=== PATIENT | male | born 1950 | race Two or more races ===

== ENCOUNTER 2024-08-06 16:20 | Emergency (ER) | payer MEDICARE, MEDICAID, SELFPAY ==
[2024-08-06 17:06] VITALS: BP 136/81; PULSE 69; RESP 18; TEMP 36.5; O2SAT 96; BMI 32.8
--- NOTE | 2024-08-06 17:33 | XR_ITS ---
Examination: Tibia-Fibula, right , 2 views Technique: Tibia-fibula AP lateral 2 views Date and time of exam: 4 1739 hrs. Indications: Right leg filling and pain beginning 3 days ago. Findings: Bimalleolar soft tissue swelling No fracture or dislocation No cortical bone destruction Soft tissue vascular calcification Impression: No fracture or cortical bone destruction
--- NOTE | 2024-08-06 17:33 | XR_ITS ---
Examination: Duplex scan of the lower extremity, unilateral right complete Date and time of exam: August 06, 2024 1837 hrs. Indications: Right ankle and foot swelling and pain beginning 2 days ago Technique: Duplex scan of the extremity veins using B-mode/grayscale imaging and Doppler spectral analysis and color flow Attention is directed to internal echogenicity, compression and augmentation involving these veins, color flow assessment, spectral analysis Findings: Major deep venous structures in the extremity demonstrate normal course and caliber. There is no evidence of deep vein thrombosis. Normal color flow and spectral analysis Impression: Negative for DVT..
--- NOTE | 2024-08-06 17:34 | PD.EDRME ---
Rapid Medical Screening Exam RME Arrival date/time: 08/06/24 16:20 Chief Complaint: Ankle/Foot Injury Time Seen by Provider: 08/06/24 17:02 Vital signs: Vital Signs Temperature 97.7 F 08/06/24 17:06 Pulse Rate 69 08/06/24 17:06 Respiratory Rate 18 08/06/24 17:06 Blood Pressure 136/81 H 08/06/24 17:06 Pulse Oximetry (%) 96 08/06/24 17:06 Oxygen Delivery Method Room Air 08/06/24 17:06 Vital signs reviewed by provider: Yes RME Narrative: 74-year-old male presents with atraumatic right foot and ankle swelling and pain x 2 days. Patient denies known history of blood clots and is not currently on blood thinners. Denies chest pain, shortness of breath, cough, fever, chills.
[2024-08-06] MEDS: HYDROcodone/APAP 5/325 TABLET 1 TAB PO (17:46)
[2024-08-06 17:47] LABS: Basophils % (Auto) 0 % (0-2.5); Eosinophils # (Auto) 0.2 Thou/mm3 (0.0-0.5); Eosinophils % (Auto) 2 % (0-10); Hematocrit 36.7 % (41.0-53.0); Hemoglobin 12.5 g/dL (13.5-16.0); Immature Granulocytes % (Auto) 0 % (0-0); Immature Granulocytes Auto 0.03 Thou/mm3 (0.00-0.00); Lymphocytes # (Auto) 1.7 Thou/mm3 (1.0-4.8); Lymphocytes % (Auto) 19 % (10-50); Mean Corpuscular HGB Conc 34.1 g/dl (31.0-37.0); Mean Corpuscular Volume 85 fL (80-100); Monocytes # (Auto) 0.9 Thou/mm3 (0.0-0.8); Monocytes % (Auto) 9 % (0-12); Neutrophils # (Auto) 6.4 Thou/mm3 (1.8-7.7); Neutrophils % (Auto) 69 % (37-80); Nucleated Red Blood Cell % 0 /100 WBC (0); Platelet Count 167 Thou/mm3 (140-440); RDW Standard Deviation 39.1 fL (35.1-43.9); Red Blood Count 4.31 Miln/mm3 (4.50-5.90); White Blood Count 9.3 Thou/mm3 (3.8-10.6)
[2024-08-06 17:58] LABS: Sed Rate (ESR) 64 mm/hr (0-20)
--- NOTE | 2024-08-06 19:16 | EDNOTE_ITS ---
Lower Extremity Injury RME/HPI General Chief Complaint: Ankle/Foot Injury Stated Complaint: R FOOT SWELLING X 2 DAYS Time Seen by Provider: 08/06/24 17:02 Arrival date/time: 08/06/24 16:20 RME / HPI RME / HPI Narrative: 74-year-old male presents with atraumatic right foot and ankle swelling and pain x 2 days. Patient denies known history of blood clots and is not currently on blood thinners. Denies chest pain, shortness of breath, cough, fever, chills. This section includes all my notes and documentations, including HPI, PE, and ED course. Thomas Lubin MD HPI: 74-year-old male here with several days of severe right ankle pain and swelling. No obvious cause. No known injury. No redness. No fever or chills. No other complaints. ROS: Musculoskeletal: negative except as documented in HPI. Skin: negative except as documented in HPI. Neurological: negative except as documented in HPI. Physical Exam: General: Alert and oriented. No acute distress when remaining still. Eyes: Conjunctivae and lids clear. Lungs: No respiratory distress. Skin: Warm and dry. Neuro: Alert and oriented X 3. Right ankle: Remarkable for severe tenderness and edema. No calor or erythema. I reviewed all diagnostic test results. My interpretation of the x-rays is no acute fracture. My review of the US report is no DVT. Blood tests and urine tests remarkable for elevated uric acid. At this point, diagnoses include gout. Treatment here included Solu-Medrol IM and Toradol IM Significant improvement noted subjectively and objectively. Recommended conservative treatment. Based on my best medical judgment, made decision no further evaluation or treatment indicated at this time. Patient understands and agrees to the discharge instructions customized and printed, see below. Discharge instructions with Dr. Lubin: --Gout is a painful form of arthritis caused by excess uric acid. This is a waste product made by the body, forming crystals in the joints, bringing on a gout attack in severe pain. Avoid food and beverages back for gout, see attached handout. --No weight bearing (using a cane in your left hand) for 3 days for rest and healing.? Elevate above waist level for 3 days as much as possible.? ?Take Prednisone to help decrease the inflammation.?? --Take Indomethacin every 6-8 hours until you are free of pain.? And lidocaine patches and Tylenol with codeine as needed. --See a private doctor on 08/08/2024..? Ask to help with the current attack and to prevent future attacks.? ?Seek immediate medical care with worsening or fever or with any concerns.?? Thomas Lubin MD Related Data Home Medications ?Medication ?Instructions ?Recorded ?Confirmed tamsulosin 0.4 mg capsule 0.4 mg PO QHS 07/19/20 06/30/24 lisinopril 10 mg tablet 10 mg PO QDAY 06/01/22 06/30/24 pantoprazole 40 mg tablet,delayed 40 mg PO QDAY 01/15/23 06/30/24 release atorvastatin 20 mg tablet 20 mg PO HS 02/01/23 06/30/24 Previous Rx's ?Medication ?Instructions ?Recorded acetaminophen 300 mg-codeine 30 mg 2 tab PO TID PRN pain #20 tabs 08/06/24 tablet indomethacin 50 mg capsule 50 mg PO QID PRN pain #30 caps 08/06/24 lidocaine 5 % topical patch 2 patch topical QDAY PRN pain #30 08/06/24 (Lidoderm) ea prednisone 50 mg tablet 50 mg PO QDAY 3 days #3 tabs 08/06/24 Allergies Allergy/AdvReac Type Severity Reaction Status Date / Time No Known Allergies Allergy Verified 08/06/24 16:21 Course Quality Measures none Orders Category Date Time Status US venous doppler LE RT Stat Exams 08/06/24 17:33 Ordered XR tibia fibula RT 2V Stat Exams 08/06/24 17:33 Completed CBC Stat Lab 08/06/24 17:40 Completed CRP [C-Reactive Protein] Stat Lab 08/06/24 17:40 Completed ESR [Sed Rate (ESR)] Stat Lab 08/06/24 17:40 Completed Uric Acid Stat Lab 08/06/24 17:40 Completed HYDROcodone*/APAP 5/325 [[place] 5/325] Med 08/06/24 17:33 Discontinued 1 tab PO X1 ONE Ketorolac Inj [Toradol Inj] Med 08/06/24 19:09 Discontinued 60 mg IM X1 ONE MethylPREDNISolone.* [SoluMEDROL Inj] Med 08/06/24 19:09 Discontinued 125 mg IM X1 ONE Vital Signs Vital signs: Vital Signs Temperature 97.7 F 08/06/24 17:06 Pulse Rate 69 08/06/24 17:06 Respiratory Rate 18 08/06/24 17:06 Blood Pressure 136/81 H 08/06/24 17:06 Pulse Oximetry (%) 96 08/06/24 17:06 Oxygen Delivery Method Room Air 08/06/24 17:06 Extremity Injury, Lower Patient data External records reviewed:: [facility] previous records Clinical information provided by:: patient Social determinants that could affect healthcare access:: none Patient has the following chronic illnesses:: See chart How is presenting disease/condition affected by chronic disease/condition?: uneffected by Evaluation data The following diagnostics were reviewed and interpreted by me:: lab results and radiology exam(s) Lab and/or radiology exams considered but not ordered:: None Interpretation Summary: Gout Medications / Prescriptions Medications or Prescriptions considered but not ordered:: None Medication administrations:: Medication Administration History Discontinued Medications Hydrocodone Bitart/Acetaminophen (Hydrocodone/Apap 5/325 Tablet) 1 tab PO X1 ONE Stop: 08/06/24 17:34 Last Admin: 08/06/24 17:46 Dose: 1 tab Documented By: DD Ketorolac Tromethamine (Ketorolac Inj 60 Mg/2 Ml Vial) 60 mg IM X1 ONE Stop: 08/06/24 19:10 Methylprednisolone Sodium Succinate (Methylprednisolone Sod Succ 62.5 Mg/Ml 2ml Vial) 125 mg IM X1 ONE Stop: 08/06/24 19:10 Toradol and Solu-Medrol Consultations Consultation(s) initiated? (list below): No Diagnosis Extremity Injury, Lower Differential Diagnosis: ankle sprain and strain and ankle fracture Most likely diagnosis given after review of the tests above:: Gout Admission Indicated Admission indicated?: not indicated Admission Request Was there a request for admission?: No Disposition Plan Disposition Plan: Discharge Discharge Attestation Discharge Attestation: The patient and all family members were given an opportunity to ask questions and understood the discharge instructions. Discharge instructions specifically effects, indications for sooner follow up or return to the emergency department, and the expected course of current diagnosis. Patient condition: Stable Discharge Plan Plan Patient Disposition: HOME (Self Care) Prescriptions/Referrals Prescriptions/Med Rec: New prednisone 50 mg tablet 50 mg PO QDAY 3 Days Qty: 3 0RF acetaminophen-codeine 300-30 mg tablet 2 tab PO TID MDD 6 PRN (Reason: pain) Qty: 20 0RF lidocaine [Lidoderm] 5 % adhesive patch,medicated 2 patch topical QDAY PRN (Reason: pain) Qty: 30 0RF Rx Instructions: leave on most painful area for up to 12 hrs indomethacin 50 mg capsule 50 mg PO QID PRN (Reason: pain) Qty: 30 0RF Rx Instructions: administer with food or milk No Action lisinopril 10 mg tablet 10 mg PO QDAY tamsulosin 0.4 mg capsule 0.4 mg PO QHS pantoprazole 40 mg tablet,delayed release (DR/EC) 40 mg PO QDAY atorvastatin 20 mg Tablet 20 mg PO HS Referrals: Yazmin Brian PA-C [Primary Care Provider] - In 1 week Problem List Clinical Impression: Gout Patient/Caregiver Discharge Instructions Discharge Activity: activity as tolerated Education Materials: ED Gout, ED Gout Diet Additional Instructions: Discharge Instructions from Dr. Lubin: --Gout is a painful form of arthritis caused by excess uric acid. This is a waste product made by the body, forming crystals in the joints, bringing on a gout attack in severe pain. Avoid food and beverages back for gout, see attached handout. --No weight bearing (using a cane in your left hand) for 3 days for rest and healing.? Elevate above waist level for 3 days as much as possible.? ?Take Prednisone to help decrease the inflammation.?? --Take Indomethacin every 6-8 hours until you are free of pain.? And lidocaine patches and Tylenol with codeine as needed. --See a private doctor on 08/08/2024..? Ask to help with the current attack and to prevent future attacks.? ?Seek immediate medical care with worsening or fever or with any concerns.?? Print Language: Greek Stand Alone Forms: [employer] Award Info., Patient Portal Info Letter
[2024-08-06 19:26] VITALS: BP 143/82; PULSE 67; RESP 16; O2SAT 98
[2024-08-06] MEDS: KETOROLAC INJ 60 MG/2 ML VIAL IM (19:26)
[2024-08-06] MEDS: MethylPREDNISolone SOD SUCC 62.5 MG/ML 2ML VIAL 125 MG IM (19:26)
== END 2024-08-06 19:27 | disposition home or self-care (01) ==
PROVIDERS: Physician Assistant; Emergency Provider Emergency Medicine; PCP Physician Assistant
DX: M10.9 Gout, unspecified (principal)
CPT/HCPCS: 36415; 73590; 84550; 85025; 85652; 86140; 93971; 96372; 99284; J1885; J2919; A9270

== ENCOUNTER 2024-08-13 08:26 | Inpatient (IN) | payer MEDICARE, MEDICAID, SELFPAY ==
[2024-08-13] VITALS (9 sets, daily range): BP systolic 155–187; BP diastolic 87–98; PULSE 60–67; RESP 13–19; TEMP 36.1–37.1; O2SAT 95–98; BMI 31.8
--- NOTE | 2024-08-13 08:39 | EKG_ITS ---
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
--- NOTE | 2024-08-13 08:39 | XR_ITS ---
Examination: AP chest single view Technique one AP portable semiupright chest single view Exam date and time: August 13, 2024 0926 hrs. Comparison April 15, 2022 Indications: Dizziness today. Findings: Moderate enlargement left ventricle Transvenous dual-chamber bipolar cardiac leads satisfactory position No pneumonia or pulmonary edema Impression: No pneumonia or pulmonary edema
--- NOTE | 2024-08-13 08:40 | PD.EDRME ---
Rapid Medical Screening Exam RME Arrival date/time: 08/13/24 08:26 74-year-old male presents emergency department with complaints of acute dizziness x 2 days. I have greeted and performed a focused initial assessment of this patient. Initial appropriate labs ordered at this time. A comprehensive ED assessment and evaluation of the patient and analysis of all test and completion of medical decision making process will be conducted by additional ED provider. Chief Complaint: Dizziness Vital signs: Vital Signs Temperature 98.8 F 08/13/24 08:36 Pulse Rate 64 08/13/24 08:36 Respiratory Rate 17 08/13/24 08:36 Blood Pressure 176/98 H 08/13/24 08:36 Pulse Oximetry (%) 97 08/13/24 08:36 Oxygen Delivery Method Room Air 08/13/24 08:36
[2024-08-13] MEDS: MECLIZINE HCL 25 MG TABLET PO (09:16)
--- NOTE | 2024-08-13 10:30 | XR_ITS ---
Examination: CT brain head without contrast. 2-D sagittal coronal reconstructions Date and time of exam: August 13, 2024 1043 hrs. Indications: Dizziness episodes beginning 2 days ago CTDI: vol (mGy):52.3 DLP: (mGycm):1094 Technique: Multiple CT axial sections of the brain have been obtained, 5 mm slice thickness. Contrast has not been administered. 2-D sagittal, coronal reconstructions have been obtained Low dose protocols were performed. One or more of the following dose reduction techniques were used; automated exposure control, adjustment of the mA and/or KV according to patient size, use of iterative reconstruction technique. Findings: No significant ventricular enlargement. 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 No mass effect or midline shift Basal cisterns are not remarkable. Fourth ventricle is midline. Cranial vault intact. 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
[2024-08-13 10:46] LABS: Basophils % (Auto) 0 % (0-2.5); Eosinophils # (Auto) 0.2 Thou/mm3 (0.0-0.5); Eosinophils % (Auto) 3 % (0-10); Hemoglobin 13.1 g/dL (13.5-16.0); Immature Granulocytes % (Auto) 0 % (0-0); Immature Granulocytes Auto 0.01 Thou/mm3 (0.00-0.00); Lymphocytes # (Auto) 1.5 Thou/mm3 (1.0-4.8); Lymphocytes % (Auto) 21 % (10-50); Mean Corpuscular HGB Conc 33.6 g/dl (31.0-37.0); Mean Corpuscular Hemoglobin 28.9 pg (25.0-35.0); Mean Corpuscular Volume 86 fL (80-100); Monocytes # (Auto) 0.4 Thou/mm3 (0.0-0.8); Monocytes % (Auto) 6 % (0-12); Neutrophils # (Auto) 4.9 Thou/mm3 (1.8-7.7); Neutrophils % (Auto) 70 % (37-80); Nucleated Red Blood Cell % 0 /100 WBC (0); Platelet Count 211 Thou/mm3 (140-440); RDW Standard Deviation 40.1 fL (35.1-43.9); Red Blood Count 4.53 Miln/mm3 (4.50-5.90)
[2024-08-13 10:51] LABS: INR 1.1 (0.9-1.3); Partial Thromboplastin Time 26.5 Seconds (22.0-36.0); Prothrombin Time 11.8 Seconds (9.0-12.2)
[2024-08-13 11:10] LABS: Alanine Aminotransferase 19 U/L (10-49); Albumin, Serum 4.3 gm/dL (3.4-4.8); Albumin/Globulin Ratio 1.7 (1.2-2.2); Alkaline Phosphatase 59 U/L (46-116); Anion Gap 9 (7-16); Aspartate Amino Transferase 17 U/L (0-34); BUN/Creatinine Ratio 15 Ratio (12-20); Blood Urea Nitrogen 12 mg/dL (9-23); Calcium 9.2 mg/dL (8.3-10.6); Calcium (Corrected) 9.2 mg/dL (8.5-10.1); Carbon Dioxide 28.3 mMol/L (20.0-31.0); Chloride 102 mMol/L (98-107); Creatinine (Component) 0.8 mg/dL (0.6-1.3); Estimated Creatinine Clearance 78.9 mL/min (>60); Globulin 2.5 gm/dL (2.3-3.5); Glucose 117 mg/dL (74-106); Osmolality,Calculated 278 (275-295); Potassium 3.8 mMol/L (3.4-5.1); Sodium 139 mMol/L (136-145); Total Protein 6.8 gm/dL (5.7-8.2); Troponin I < 0.020 ng/mL (0.0-0.045); eGFR > 60 See Note
--- NOTE | 2024-08-13 11:48 | PD.EDADULT ---
ED General RME/HPI General Chief complaint: Dizziness Stated complaint: DIZZINESS SINCE YESTERDAY Time Seen by Provider: 08/13/24 08:40 Arrival date/time: 08/13/24 08:26 RME / HPI RME / HPI narrative: 08/13/24 08:26 74-year-old male with past medical history of hypertension on lisinopril, GERD, and BPH presented to the emergency department with complaints of acute dizziness x 2 days. The dizziness occurred when he tried to stand up from a sitting position 2 days ago. Patient states that this was associated with headache that was 6 out of 10 in intensity. He also endorsed a buzzing sensation in his bilateral ears. Patient also endorsed generalized weakness. His at bedside notes that patient has had changes in his ability to walk over the past 2 years. However, she does state that his inability to walk worsened over the past 2 days. Patient believes this change in ability to walk is exacerbated by the dizziness he feels when his eyes are open. He does not have a preference for the left or right side when he walks. No known allergies. Medications endorse that he takes at home: Lisinopril, aspirin, atorvastatin, and tamsulosin. Surgical history includes pacemaker hernia repair. Admits to no alcohol, smoking, or illicit drug use history. Patient denies fever, chills, chest pain, palpitation, shortness of breath, dizziness, nausea, vomiting, diarrhea, or constipation. I performed a focused initial assessment of this patient. Initial appropriate labs ordered at this time. A comprehensive ED assessment and evaluation of the patient and analysis of all test and completion of medical decision making process will be conducted by additional ED provider. MD complaint: Dizziness Onset (ago): day(s) (2 days ago) Related Data Home Medications ?Medication ?Instructions ?Recorded ?Confirmed tamsulosin 0.4 mg capsule 0.4 mg PO QHS 07/19/20 08/13/24 atorvastatin 20 mg tablet 20 mg PO HS 02/01/23 08/13/24 aspirin 81 mg tablet,delayed 81 mg PO QDAY 08/13/24 08/13/24 release lisinopril 20 mg tablet 20 mg PO QDAY 08/13/24 08/13/24 Previous Rx's ?Medication ?Instructions ?Recorded acetaminophen 300 mg-codeine 30 mg 2 tab PO TID PRN pain #20 tabs 08/06/24 tablet Allergies Allergy/AdvReac Type Severity Reaction Status Date / Time No Known Allergies Allergy Verified 08/13/24 08:28 Review of Systems Review of Systems Systems Reviewed: All systems reviewed, normal except as documented Past Medical History Past Medical History NEUROLOGIC: Negative Neurological Disorders or Seizures CARDIAC: Positive Cardiac Disorders, Cardiac Arrhythmia, Atherosclerotic Heart Disease and Hypertension; Negative Congestive Heart Failure RESPIRATORY: Positive Asthma; Negative Chronic Obstructive Pulmonary Disease (COPD) GASTROINTESTINAL: Negative Gastrointestinal Disorders GENITOURINARY: Positive Genitourinary Disorders and Benign Prostatic Hyperplasia; Negative Renal Disease MUSCULOSKELETAL: Negative Musculoskeletal Disorders ENDOCRINE: Positive Endocrine Disorders and Diabetes Mellitus Type 2; Negative Diabetes Mellitus Type 1 OTHER HISTORY: Negative Blood Transfusions, Blood Transfusion Reaction or Anesthesia Reactions Family History FAMILY HISTORY: Negative Family Cardiac Disorders Surgical History SURGICAL: Positive Abdominal Surgery and Amputation; Negative Ear Surgery Social History SMOKING STATUS: Never smoker SUBSTANCE USE: does not use Travel History EBOLA RISK: No ED Exam Narrative Physical exam: Constitutional: well-developed, well-nourished, in no acute distress, lying in bed, closes his eyes when sitting up. HEENT: NCAT, EOMI reactive round pupils b/l, patent nares b/l, moist mucous membranes, on room air Lung: CTAB, no wheezing, no rhonchi, no crackles. Heart: Regular S1S2, no murmurs, gallops, or rubs. Abdomen: Soft, non-distended, non-tender. Extremities: No cyanosis, clubbing, no edema of b/l legs. 5 out of 5 strength bilateral upper and lower extremities. Neurologic: No focal sensory deficits noted, AOx3, appropriate affect. Negative nystagmus. Broad-based gait noted. Negative Romberg. Positive tinnitus b/l. Skin: Warm, dry, no lesions or rashes noted Course Quality Measures Suspected type of Stroke: Acute Ischemic Tenecteplase given: Reason(s) TPA not given: Outside the time window not given stroke Orders Category Date Time Status Place in Observation Status Routine Admission 08/13/24 12:27 Active COVID-19 Screening Questionnaire NOW Care 08/13/24 13:30 Active Equipment Washer STAT Care 08/13/24 08:39 Completed EKG (ED ONLY) *Do not use* NOW Care 08/13/24 08:39 Completed Neuro Check Q4H START 00 Care 08/13/24 11:26 Active Notify provider NEEDED Care 08/13/24 12:27 Active Orthostatic Vitals NOW Care 08/13/24 17:15 Active Seizure precautions NOW Care 08/13/24 11:26 Active Sequential Compression Device QSHIFT Care 08/13/24 12:31 Active Consult to Neurology / Tele-Neurology Stat Cons 08/13/24 11:23 Active Referral Physical Therapy Routine Cons 08/13/24 16:03 Completed CA echo doppler complete Routine Exams 08/13/24 12:[address] head/brain wo con Stat Exams 08/13/24 10:30 Completed EKG (ED Only) Stat Exams 08/13/24 08:39 Draft XR chest 1V portable Stat Exams 08/13/24 08:39 Completed A1C [Glycohemoglobin w (eAG)] AM DRAW Lab 08/14/24 04:52 Completed Basic Metabolic Panel AM DRAW Lab 08/14/24 04:52 Completed Basic Metabolic Panel AM DRAW Lab 08/15/24 05:22 Completed Basic Metabolic Panel AM DRAW Lab 08/16/24 05:15 Completed CBC AM DRAW Lab 08/14/24 04:52 Completed CBC AM DRAW Lab 08/15/24 05:22 Completed CBC AM DRAW Lab 08/16/24 05:15 Completed CBC Stat Lab 08/13/24 09:24 Completed CMP [Comprehensive Metabolic Panel] Stat Lab 08/13/24 09:24 Completed Lipid Panel Stat Lab 08/13/24 09:24 Completed Partial Thromboplastin Time Stat Lab 08/13/24 09:24 Completed Prothrombin Time with INR Stat Lab 08/13/24 09:24 Completed Thyroid Stimulating Hormone AM DRAW Lab 08/14/24 04:52 Completed Troponin I Stat Lab 08/13/24 09:24 Completed Acetaminophen Tab [Tylenol Tab] Med 08/13/24 12:27 Active 650 mg PO Q6H PRN Aspirin Med 08/13/24 11:36 Discontinued 325 mg PO X1 ONE Aspirin [Ecotrin] Med 08/14/24 09:00 Active 81 mg PO QDAY Aspirin [Ecotrin] Med 08/13/24 11:24 Discontinued 81 mg PO X1 ONE Atorvastatin Calcium [Lipitor] Med 08/13/24 21:00 Active 40 mg PO HS Atorvastatin Calcium [Lipitor] Med 08/13/24 11:25 Discontinued 40 mg PO X1 ONE Clopidogrel [Plavix] Med 08/14/24 09:00 Active 75 mg PO QDAY Enoxaparin [Lovenox] Med 08/14/24 09:00 Active 40 mg SC QDAY Meclizine HCl [Antivert] Med 08/13/24 08:39 Discontinued 25 mg PO X1 ONE Milk Of Magnesia Susp [Mom Susp] Med 08/13/24 12:27 Active 30 ml PO QDAY PRN Ondansetron Inj [Zofran Inj] Med 08/13/24 12:27 Active 4 mg IV Q6H PRN Code Status Routine Oth 08/13/24 12:27 Completed Vital Signs Vital signs: Vital Signs Temperature 98.8 F 08/13/24 08:36 Pulse Rate 64 08/13/24 08:36 Respiratory Rate 17 08/13/24 08:36 Blood Pressure 176/98 H 08/13/24 08:36 Pulse Oximetry (%) 97 08/13/24 08:36 Oxygen Delivery Method Room Air 08/13/24 08:36 SpO2 97% on room air, patient is not hypoxic MDM Patient data External records reviewed:: None Clinical information provided by:: patient and family Social determinants that could affect healthcare access:: none Patient has the following chronic illnesses:: HTN and GERD How is presenting disease/condition affected by chronic disease/condition?: exacerbated by Evaluation data The following diagnostics were reviewed and interpreted by me:: lab results, radiology exam(s) and EKG tracing(s) Lab and/or radiology exams considered but not ordered:: N/a Interpretation Summary: CT brain- noncontrast: No significant ventricular enlargement. 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 No mass effect or midline shift Basal cisterns are not remarkable. Fourth ventricle is midline. Cranial vault intact. EKG shows electronic electrical pacemaker, heart rate 66. CXR showed: moderate enlargement left ventricle Transvenous dual-chamber bipolar cardiac leads satisfactory position No pneumonia or pulmonary edema Medications Medications considered but not ordered:: plavix Medication administrations:: Medication Administration History Acetaminophen (Acetaminophen 325 Mg Tablet) 650 mg PO Q6H PRN PRN Reason: PAIN SCALE 1-3 (mild Stop: 09/12/24 12:26 Aspirin (Aspirin Ec 81 Mg Tabec) 81 mg PO QDAY JOSE Stop: 09/13/24 08:59 Last Admin: 08/17/24 08:47 Dose: 81 mg Documented By: Admin: 08/16/24 08:11 Dose: 81 mg Documented By: NGUYỄN Admin: 08/15/24 09:32 Dose: 81 mg Documented By: NGUYỄN Admin: 08/14/24 08:48 Dose: 81 mg Documented By: MARCUS Atorvastatin Calcium (Atorvastatin Calcium 20 Mg Tablet) 40 mg PO HS [facility] Stop: 09/12/24 20:59 Last Admin: 08/16/24 20:15 Dose: 40 mg Documented By: Admin: 08/15/24 20:10 Dose: 40 mg Documented By: Admin: 08/14/24 20:17 Dose: 40 mg Documented By: Admin: 08/13/24 20:50 Dose: 40 mg Documented By: Clopidogrel Bisulfate (Clopidogrel Bisulfate 75 Mg Tablet) 75 mg PO QDAY [facility] Stop: 09/13/24 08:59 Last Admin: 08/17/24 08:47 Dose: 75 mg Documented By: Admin: 08/16/24 08:05 Dose: 75 mg Documented By: NGUYỄN Admin: 08/15/24 09:32 Dose: 75 mg Documented By: NGUYỄN Admin: 08/14/24 08:48 Dose: 75 mg Documented By: MARCUS Enoxaparin Sodium (Enoxaparin Sod Inj 40 Mg/0.4 Ml Syringe) 40 mg SC QDAY [facility] Stop: 08/28/24 08:59 Last Admin: 08/17/24 08:50 Dose: 40 mg Documented By: Admin: 08/16/24 08:06 Dose: 40 mg Documented By: NGUYỄN Admin: 08/15/24 09:32 Dose: 40 mg Documented By: NGUYỄN Admin: 08/14/24 08:49 Dose: 40 mg Documented By: MARCUS Lisinopril (Lisinopril 20 Mg Tablet) 20 mg PO QDAY [facility] Stop: 09/13/24 09:59 Last Admin: 08/17/24 08:47 Dose: 20 mg Documented By: Admin: 08/16/24 08:05 Dose: 20 mg Documented By: NGUYỄN Admin: 08/15/24 09:32 Dose: 20 mg Documented By: NGUYỄN Admin: 08/14/24 12:14 Dose: 20 mg Documented By: TM Magnesium Hydroxide (Milk Of Magnesia Susp 30 Ml Udc) 30 ml PO QDAY PRN; Protocol PRN Reason: CONSTIPATION Stop: 09/12/24 12:26 Meclizine HCl (Meclizine Hcl 25 Mg Tablet) 25 mg PO QDAY JOSE Stop: 09/13/24 08:59 Last Admin: 08/17/24 08:47 Dose: 25 mg Documented By: Admin: 08/16/24 08:06 Dose: 25 mg Documented By: NGUYỄN Admin: 08/15/24 09:32 Dose: 25 mg Documented By: NGUYỄN Admin: 08/14/24 08:49 Dose: 25 mg Documented By: MARCUS Ondansetron HCl (Ondansetron Inj 2 Mg/Ml Inj 2 Ml) 4 mg IV Q6H PRN; Protocol PRN Reason: NAUSEA OR VOMITING Stop: 09/12/24 12:26 Discontinued Medications Aspirin (Aspirin Ec 81 Mg Tabec) 81 mg PO X1 ONE Stop: 08/13/24 11:25 Last Admin: 08/13/24 12:20 Dose: Not Given Documented By: MAGGIE Non-Admin Reason: Cancelled by Provider Aspirin (Aspirin 325 Mg Tablet) 325 mg PO X1 ONE Stop: 08/13/24 11:37 Last Admin: 08/13/24 12:20 Dose: 325 mg Documented By: MAGGIE Atorvastatin Calcium (Atorvastatin Calcium 10 Mg Tablet) 40 mg PO X1 ONE Stop: 08/13/24 11:26 Last Admin: 08/13/24 12:20 Dose: 40 mg Documented By: MAGGIE Influenza Virus Vaccine Quadrival (Influenza Virus Quadrivalent 0.5 Ml Syringe) 0.5 ml IMi .ONCE ONE Stop: 08/14/24 12:01 Meclizine HCl (Meclizine Hcl 25 Mg Tablet) 25 mg PO X1 ONE Stop: 08/13/24 08:40 Last Admin: 08/13/24 09:16 Dose: 25 mg Documented By: MAGGIE Aspirin, atorvastatin, meclizine as above. Consultations Consultation(s) initiated? (list below): Yes Consultation #1 (Physician, Specialty, Details): Dr. Varela, neurology, recommends start aspirin 325mg x 1 and atorvastatin. Evaluate with recommended MRI. Allow permissive hypertension. No need for tPA considering patient is out of the window per timing. Diagnosis Differential Diagnosis ED Complaint MDM: peripheral vertigo Most likely diagnosis given after review of the tests above:: Acute on chronic CVA Admission Indicated Admission indicated?: indicated Explain why admission is indicated or not indicated:: Admission is indicated considering patient has his ataxia over the past 2 days associated with dizziness and headache. Patient was also found to be hypertensive. Would like to monitor to improve blood pressure safety over the next 24-48 hours. Admission Request Was there a request for admission?: Yes Admission Attestation Admission request attestation: Discussed case with [] from Hospitalist service regarding admission. Discussed patients ED course, exam findings, labs, and radiology results. The Hospitalist [agrees,declines] to accept the patient for admission. Disposition Plan Disposition Plan: Admit Medical Decision Making MDM Narrative MDM Narrative: Patient complaints of acute dizziness x 2 days. The dizziness occurred when he tried to stand up from a sitting position 2 days ago. Patient states that this was associated with headache that was 6 out of 10 in intensity. He also endorsed a buzzing sensation in his bilateral ears. Patient also endorsed generalized weakness. His at bedside notes that patient has had changes in his ability to walk over the past 2 years. However, she does state that his inability to walk worsened over the past 2 days. He also endorsed a buzzing sensation in his bilateral ears. Patient also endorsed generalized weakness. His symptoms present as acute on chronic in the setting of 2 year hx of ataxia that was never worked up in the past. Suspicion for prior stroke resulting in increased risk for current presentation with likely acute stroke. Patient has risk factors for stroke, therefore CT imaging was ordered. CT brain showed age indeterminate infarcts right frontal parietal and posterior right parietal lobe, and intra-axial or extra-axial hemorrhage density is not seen. No mass effect or midline shift on imaging. CXR showed no pneumonia or pulmonary edema. Neurology was consulted who recommended to admit the patient and to administer both atorvastatin as well as aspirin. Neurology recommended patient to be admitted for MRI imaging on 08/15/2024. Hospitalist team accepted for admission/further workup of stroke rule out. Differential Diagnosis Differential Diagnosis: peripheral vertigo Medical Records Medical records reviewed: Yes I reviewed the patient's medical records. Lab Data Lab results reviewed: Yes I reviewed the patient's lab results. 08/17/24 05:45 08/17/24 05:45 Labs: Lab Results 08/13/24 Range/Units 09:24 WBC 7.0 (3.8-10.6) Thou/mm3 RBC 4.53 (4.50-5.90) Miln/mm3 Hgb 13.1 L (13.5-16.0) g/dL Hct 39.0 L (41.0-53.0) % MCV 86 (80-100) fL MCH 28.9 (25.0-35.0) pg MCHC 33.6 (31.0-37.0) g/dl RDW Std Deviation 40.1 (35.1-43.9) fL Plt Count 211 D (140-440) Thou/mm3 Neut % (Auto) 70 (37-80) % Lymph % (Auto) 21 (10-50) % Mcduffie % (Auto) 6 (0-12) % Eos % (Auto) 3 (0-10) % Baso % (Auto) 0 (0-2.5) % Neut # (Auto) 4.9 (1.8-7.7) Thou/mm3 Lymph # (Auto) 1.5 (1.0-4.8) Thou/mm3 [place]duffie # (Auto) 0.4 (0.0-0.8) Thou/mm3 Eos # (Auto) 0.2 (0.0-0.5) Thou/mm3 Baso # (Auto) 0.0 (0.0-0.2) Thou/mm3 Immature Gran # (Auto) 0.01 H (0.00-0.00) Thou/mm3 Absolute Nucleated RBC 0.00 (0.00-0.00) Thou/mm3 Immature Gran % 0 (0-0) % Nucleated RBC % 0 (0) /100 WBC PT 11.8 (9.0-12.2) Seconds INR 1.1 (0.9-1.3) APTT 26.5 (22.0-36.0) Seconds Sodium 139 (136-145) mMol/L Potassium 3.8 (3.4-5.1) mMol/L Chloride 102 (98-107) mMol/L Carbon Dioxide 28.3 (20.0-31.0) mMol/L Anion Gap 9 (7-16) BUN 12 (9-23) mg/dL Creatinine 0.8 (0.6-1.3) mg/dL Estim Creat Clear Calc 78.9 (>60) mL/min eGFR > 60 (60 - ) See Note BUN/Creatinine Ratio 15 (12-20) Ratio Glucose 117 H (74-106) mg/dL Calculated Osmolality 278 (275-295) Calcium 9.2 (8.3-10.6) mg/dL Corrected Calcium 9.2 (8.5-10.1) mg/dL Total Bilirubin 1.0 (0.3-1.2) mg/dL AST 17 (0-34) U/L ALT 19 (10-49) U/L Alkaline Phosphatase 59 (46-116) U/L Troponin I < 0.020 (0.0-0.045) ng/mL Total Protein 6.8 (5.7-8.2) gm/dL Albumin 4.3 (3.4-4.8) gm/dL Globulin 2.5 (2.3-3.5) gm/dL Albumin/Globulin Ratio 1.7 (1.2-2.2) Triglycerides 219 H (30-150) mg/dL Cholesterol 172 (132-200) mg/dL LDL Cholesterol, Calc 85 (0-130) mg/dL HDL Cholesterol 43 (40-60) mg/dL Cholesterol/HDL Ratio 4.0 (4.0-6.7) RATIO Radiology Data Radiology results reviewed: Yes I reviewed the patient's radiology results. Discharge Plan Plan Patient Disposition: Admit Acute Care w/in Hospital Problem List Clinical Impression: Hypertension, Benign paroxysmal positional vertigo, Transient cerebral ischemia MD Attestation MD Attestation The patient was seen by the PGY-2. I, the supervising physician, also encountered and examined the patient while remaining present during the entire ER visit. I was available for consultation as needed. I agree with the plan and documentation.
[2024-08-13 11:53] LABS: Cholesterol 172 mg/dL (132-200); HDL Cholesterol 43 mg/dL (40-60); LDL Cholesterol,Calculated 85 mg/dL (0-130); Triglycerides 219 mg/dL (30-150)
[2024-08-13] MEDS: ATORVASTATIN CALCIUM 10 MG TABLET 40 MG PO (12:20)
[2024-08-13] MEDS: Aspirin 325 MG TABLET PO (12:20)
--- NOTE | 2024-08-13 12:31 | ECHO_ITS ---
Transthoracic Echo Report Ht (in): 63 Wt (lb): 180 Exam Location: Echo Lab Status: Emergency Supervisor Braiding: Monie Castaneda Indications: Procedure Performed: BP: 139 / 83 HR: 68 Rhythm: Sinus Technical Quality: Technically difficult study MEASUREMENTS (Male / Female) Normal Values 2D ECHO LV Diastolic Diameter PLAX 4.1 cm 4.2 - 5.9 / 3.9 - 5.3 cm LV Systolic Diameter PLAX 3.5 cm IVS Diastolic Thickness 1.1 cm 0.6 - 1.0 / 0.6 - 0.9 cm LVPW Diastolic Thickness 1.4 cm 0.6 - 1.0 / 0.6 - 0.9 cm LV Relative Wall Thickness 0.6 LVOT Diameter 1.8 cm LV Ejection Fraction MOD 4C 52.4 % LV Cardiac Index MOD 4C 2630.5 cm?/min?m? LV Ejection Fraction 4C AL 52.0 % LV Cardiac Index 4C AL 2694.1 cm?/min?m? M-MODE Aortic Root Diameter MM 2.3 cm AV Cusp Separation MM 1.3 cm DOPPLER AV Peak Velocity 169.0 cm/s AV Peak Gradient 11.4 mmHg AV Mean Gradient 6.0 mmHg AV Velocity Time Integral 29.4 cm LVOT Peak Velocity 141.0 cm/s LVOT Peak Gradient 8.0 mmHg LVOT Velocity Time Integral 30.1 cm LVOT Cardiac Index 2690.1 cm?/min?m? AV Area Cont Eq vti 2.6 cm? AV Area Cont Eq pk 2.1 cm? MV Area PHT 4.8 cm? MR Peak Velocity 189.0 cm/s MR Peak Gradient 14.3 mmHg Mitral E Point Velocity 38.3 cm/s Mitral A Point Velocity 66.5 cm/s Mitral E to A Ratio 0.6 LV E' Lateral Velocity 4.2 cm/s Mitral E to LV E' Lateral Ratio 9.0 LV E' Septal Velocity 4.2 cm/s Mitral E to LV E' Septal Ratio 9.0 TR Peak Velocity 207.0 cm/s TR Peak Gradient 17.1 mmHg FINDINGS Left Ventricle Normal left ventricular size, systolic function with no obvious regional wall motion abnormalities. Mild LVH. Normal left ventricular diastolic filling pattern for age. The ejection fraction is visually es timated at 45-50 %. Right Ventricle The right ventricle is normal in size and systolic function. Left Atrium The left atrium is normal by two-dimensional, color flow and Doppler imaging with no structural abnormalities, no thrombus formation present. Right Atrium The right atrium is normal by two-dimensional imaging, color flow and Doppler imaging with no struct ural abnormalities, no thrombus formation present. Atrial Septum The interatrial septum appears normal with no evidence of a shunt. Aorta The aorta is normal by two-dimensional, color flow and Doppler interrogation. Mitral Valve The mitral valve is normal by two-dimensional, color flow and Doppler interrogation. There is mild m itral valve regurgitation, stenosis or prolapse. Aortic Valve The aortic valve is trileaflet and normal by two-dimensional, color flow and Doppler interrogation. There is no significant aortic valve regurgitation. Tricuspid Valve The tricuspid valve is normal by two-dimensional, color flow and Doppler interrogation. There is mil d tricuspid valve regurgitation. Pulmonic Valve The pulmonic valve is not well visualized. There is no significant pulmonic valve regurgitation. Vessels The pulmonary artery appears normal. The inferior vena cava pulmonary and hepatic veins appear britany l. Pericardium The pericardium is normal by two-dimensional imaging. There is no significant pericardial effusion. CONCLUSIONS Indication: Stroke Negative bubble study Normal LV size. Mild LVH. Normal left ventricular diastolic filling pattern for age. Estimated EF 50 %. RV is normal in size and systolic function. Mild MR and TR. Lazara Marcial (Electronically Signed) Final Date: 15 August 2024 08:55
--- NOTE | 2024-08-13 13:08 | PD.RESHP ---
Documentation for date of: 08/13/24 [facility] History of Present Illness Chief complaint: dizziness History of present illness: Patient is Kyrgyz-speaking and poor historian A 74-year-old male with past medical history of hypertension on lisinopril, GERD, and BPH, bradycardia s/p pacemaker in 2020 presented to the hospital with chief complaints of dizziness since yesterday morning. Stated that after waking up at 7 AM yesterday patient was walking and he suddenly felt dizziness. Also stated that he had generalized weakness without any focal neurological deficit. Denies fever, chest pain, shortness of breath, palpitations, nausea, vomiting, diarrhea. Dr. Varela was consulted. ED Course: -Initial vitals were blood pressure 176/98 mmHg, pulse rate 64 bpm, respiratory rate 17/min, SpO2 97% with room air -Labs significant for WBC 7, Hb 13, coagulation studies are within normal limits, sodium 139, potassium 3.8, creatinine 0.8, BUN 12, triglycerides 219, rest of the lipid profile is within normal limits. -CT head and CTA neck/head is negative and did not show any active lesions right now. -In the ED, patient was given meclizine, aspirin, atorvastatin -Patient was admitted for stroke rule out Past medical history: Bradycardia s/p pacemaker Past surgical history: Hernia repair Social history: Denies smoking, alcohol, drug abuse Review of Systems Review of Systems Systems Reviewed: All systems reviewed, normal except as documented Exam Vital Signs Temp Pulse Resp BP Pulse Ox O2 Del Method 98.3 F 67 19 156/92 H 97 Room Air 08/13/24 09:52 08/13/24 09:52 08/13/24 09:52 08/13/24 09:52 08/13/24 09:52 08/13/24 09:52 Narrative Exam General: Awake and in no acute distress. HEENT: Normocephalic, atraumatic, mucous membranes moist. Heart: Regular rate and rhythm, no murmurs. Lungs: Clear to auscultation with no wheezing or crackles. Abdomen: Soft, nondistended, nontender, positive bowel sounds. ?No guarding or rebound tenderness. Neurologic: Alert and oriented x3, no gross neurological deficit, and patient able to move all 4 extremities. Extremities: No edema. Skin: No rash or ecchymoses. Results: Labs 08/14/24 04:52 08/14/24 04:52 Labs: Short CBC 08/13/24 Range/Units 09:24 WBC 7.0 (3.8-10.6) Thou/mm3 Hgb 13.1 L (13.5-16.0) g/dL Hct 39.0 L (41.0-53.0) % Plt Count 211 D (140-440) Thou/mm3 BMP 08/13/24 09:24 Sodium 139 Potassium 3.8 Chloride 102 Carbon Dioxide 28.3 BUN 12 Creatinine 0.8 Glucose 117 H Calcium 9.2 Cardiac Enzymes 08/13/24 Range/Units 09:24 Troponin I < 0.020 (0.0-0.045) ng/mL Liver Function 08/13/24 Range/Units 09:24 Total Bilirubin 1.0 (0.3-1.2) mg/dL AST 17 (0-34) U/L ALT 19 (10-49) U/L Alkaline Phosphatase 59 (46-116) U/L Albumin 4.3 (3.4-4.8) gm/dL Quality Measures Quality Measures stroke Suspected type of Stroke: Acute Ischemic Tenecteplase given: Reason(s) Tenecteplase not given: Outside the time window not given Rehab services: PT evaluation ordered VTE Prophylaxis: pharmaceutical Antithrombotic by day 2:: ordered Statin ordered: <75 y/o high intensity dose Anticoagulation ordered for A-fib or flutter (current or hx): not indicated Advance care planning discussed with:: patient Medications Home Medications and Allergies Home Medications ?Medication ?Instructions ?Recorded ?Confirmed ?Type tamsulosin 0.4 mg capsule 0.4 mg PO QHS 07/19/20 08/13/24 History atorvastatin 20 mg tablet 20 mg PO HS 02/01/23 08/13/24 History aspirin 81 mg tablet,delayed 81 mg PO QDAY 08/13/24 08/13/24 History release lisinopril 20 mg tablet 20 mg PO QDAY 08/13/24 08/13/24 History Allergies Allergy/AdvReac Type Severity Reaction Status Date / Time No Known Allergies Allergy Verified 08/13/24 08:28 Visit Medications Acetaminophen (Acetaminophen 325 Mg Tablet) 650 mg PO Q6H PRN PRN Reason: PAIN SCALE 1-3 (mild Stop: 09/12/24 12:26 Aspirin (Aspirin Ec 81 Mg Tabec) 81 mg PO QDAY [facility] Stop: 09/13/24 08:59 Atorvastatin Calcium (Atorvastatin Calcium 20 Mg Tablet) 40 mg PO HS [facility] Stop: 09/12/24 20:59 Clopidogrel Bisulfate (Clopidogrel Bisulfate 75 Mg Tablet) 75 mg PO QDAY JOSE Stop: 09/13/24 08:59 Enoxaparin Sodium (Enoxaparin Sod Inj 40 Mg/0.4 Ml Syringe) 40 mg SC QDAY [facility] Stop: 08/28/24 08:59 Magnesium Hydroxide (Milk Of Magnesia Susp 30 Ml Udc) 30 ml PO QDAY PRN; Protocol PRN Reason: CONSTIPATION Stop: 09/12/24 12:26 Ondansetron HCl (Ondansetron Inj 2 Mg/Ml Inj 2 Ml) 4 mg IV Q6H PRN; Protocol PRN Reason: NAUSEA OR VOMITING Stop: 09/12/24 12:26 Discontinued Medications Aspirin (Aspirin Ec 81 Mg Tabec) 81 mg PO X1 ONE Stop: 08/13/24 11:25 Last Admin: 08/13/24 12:20 Dose: Not Given Aspirin (Aspirin 325 Mg Tablet) 325 mg PO X1 ONE Stop: 08/13/24 11:37 Last Admin: 08/13/24 12:20 Dose: 325 mg Atorvastatin Calcium (Atorvastatin Calcium 10 Mg Tablet) 40 mg PO X1 ONE Stop: 08/13/24 11:26 Last Admin: 08/13/24 12:20 Dose: 40 mg Meclizine HCl (Meclizine Hcl 25 Mg Tablet) 25 mg PO X1 ONE Stop: 08/13/24 08:40 Last Admin: 08/13/24 09:16 Dose: 25 mg Assessment & Plan Plan A 74-year-old male with past medical history of hypertension on lisinopril, GERD, and BPH, bradycardia s/p pacemaker in 2020 presented to the hospital with chief complaints of dizziness since yesterday morning and admitted for stroke rule out. # Dizziness, rule out acute CVA # Vertigo versus orthostatic hypotension versus Acute ischemic stroke rule out Patient presented with dizziness since [address] head is negative for any hemorrhage or lesions. CTA head/neck showed no occlusion. -Neurologist Dr. Varela was consulted and will follow, appreciate recommendations -Admitted to [facility] -Orthostatic vitals were ordered -Head of bed elevation >30 degrees -Maintain euglycemia and normal temperature -Allow for permissive hypertension below 220/120 with 25% reduction goal in first 24 hours -Q4H neuro checks -Nurse swallow screen -Speech evaluation -PT evaluation -Echocardiography with bubble study ordered -MRI brain with and without contrast ordered -Hemoglobin A1c -Lipid panel -Vitamin B12 level -TSH level -Start aspirin 81 mg daily -Start atorvastatin 40 mg HS daily # History of hypertension -Patient is using lisinopril 20 Mg at home. -Blood pressure at the time of admission is 176/98 mmHg -Will perform with permissive hypertension for 48 hours. - Will resume Lisinopril tomorrow # History of bradycardia s/p pacemaker -EKG done showed sinus rhythm -No active intervention right now. Hospital Maintenance: Dispo: medsurg DVT ppx: lovenox GI ppx: not needed Diet: n.p.o IV lines: peripheral Code status: DNR Patient plan of care was discussed with the attending physician, Dr. Mildred Geiger, PGY1 Attending Provider Attestation/Addendum I, Jennie Levy DO, attest that I was physically present for the tejeda portions of the service and evaluated the patient with the resident and I reviewed and discussed the case with the resident and agree with the resident's findings and plans of care as documented above Patient is a 74-year-old male with past medical history of hypertension, GERD, BPH, sick sinus syndrome status post pacemaker who was brought to the ED due to worsening dizziness that began yesterday morning when he got out of bed. Patient endorsed unsteadiness while walking. He states that he feels as though the room is spinning when he tries to move. He denies any falls, but does need help with ambulation due to the fear of falling with dizziness. He endorses generalized weakness as well. On exam, patient has no focal neurological deficits. Stroke alert was called in the ED. CT head and CTA were both negative for any acute intracranial findings. He has noted to have elevated BP of 176/98 on presentation. Neurology was called and recommends further workup for possible stroke. Admit to telemetry for further workup and medical management of possible stroke. Pending MRI and echo
[2024-08-13] MEDS: ATORVASTATIN CALCIUM 20 MG TABLET 40 MG PO (20:50)
[2024-08-14] VITALS (8 sets, daily range): BP systolic 118–158; BP diastolic 71–96; PULSE 60–77; RESP 15–19; TEMP 36.1–36.7; O2SAT 95–97; BMI 31.8
[2024-08-14 05:58] LABS: Basophils % (Auto) 0 % (0-2.5); Eosinophils # (Auto) 0.2 Thou/mm3 (0.0-0.5); Eosinophils % (Auto) 3 % (0-10); Hematocrit 40.6 % (41.0-53.0); Hemoglobin 13.7 g/dL (13.5-16.0); Immature Granulocytes % (Auto) 0 % (0-0); Immature Granulocytes Auto 0.01 Thou/mm3 (0.00-0.00); Lymphocytes # (Auto) 1.6 Thou/mm3 (1.0-4.8); Lymphocytes % (Auto) 22 % (10-50); Mean Corpuscular HGB Conc 33.7 g/dl (31.0-37.0); Mean Corpuscular Hemoglobin 29.2 pg (25.0-35.0); Mean Corpuscular Volume 87 fL (80-100); Monocytes # (Auto) 0.5 Thou/mm3 (0.0-0.8); Monocytes % (Auto) 7 % (0-12); Neutrophils % (Auto) 68 % (37-80); Nucleated Red Blood Cell % 0 /100 WBC (0); Platelet Count 191 Thou/mm3 (140-440); RDW Standard Deviation 39.8 fL (35.1-43.9); Red Blood Count 4.69 Miln/mm3 (4.50-5.90); White Blood Count 7.3 Thou/mm3 (3.8-10.6)
[2024-08-14 06:27] LABS: Anion Gap 10 (7-16); BUN/Creatinine Ratio 16 Ratio (12-20); Blood Urea Nitrogen 11 mg/dL (9-23); Calcium 9.4 mg/dL (8.3-10.6); Carbon Dioxide 25.8 mMol/L (20.0-31.0); Chloride 103 mMol/L (98-107); Creatinine (Component) 0.7 mg/dL (0.6-1.3); Estimated Creatinine Clearance 88.1 mL/min (>60); Glucose 99 mg/dL (74-106); Osmolality,Calculated 276 (275-295); Potassium 3.9 mMol/L (3.4-5.1); Sodium 139 mMol/L (136-145); Thyroid Stimulating Hormone 1.76 uIU/mL (0.55-4.78); eGFR > 60 See Note
[2024-08-14 07:00] LABS: Glucose Estimated Average 120 mg/dL (80-131); Hemoglobin A1C 5.8 % Hgb (4.8-6.0)
--- NOTE | 2024-08-14 08:18 | PC.NURSE ---
Per Dr. Geiger order ST eval and can do bedside nurse swallow screen. If pt. passes order diet.
[2024-08-14] MEDS: ASPIRIN EC 81 MG TABEC PO (08:48)
[2024-08-14] MEDS: CLOPIDOGREL BISULFATE 75 MG TABLET PO (08:48)
[2024-08-14] MEDS: MECLIZINE HCL 25 MG TABLET PO (08:49)
[2024-08-14] MEDS: ENOXAPARIN SOD INJ 40 MG/0.4 ML SYRINGE SC (08:49)
--- NOTE | 2024-08-14 11:15 | PC.NURSE ---
Hand-off report taken from PATRICK Bain.
--- NOTE | 2024-08-14 11:21 | PC.SS ---
Initial assessment: This is 74 year old male admitted for stroke R/O. Patient appeared alert and oriented. Patient informs he lives at home with spouse, Naomi Antoine. Confirmed address on face sheet. Patient's , Naomi was identified as the patient's medical surrogate decision maker. Patient describes to use some assistance with ADL's. Patient denies use of DME at home, currently. Patient's PCP is Dr. Yazmin Brian. Pharmacy of choice is [facility] in [place]. The discharge plan was discussed, and the patient would like to return home once medically cleared. Patient's family to assist with transportation home. Patient informs he will need a FWW upon discharge, no preferred DME vendor. social human services assistants to remain available to address further concerns. D/c plan: home Next of kin: , Naomi Antoine
--- NOTE | 2024-08-14 11:26 | PC.SS ---
Addendum entered by EDUARDO Neri 08/14/24 12:40: DME inquiry sent via [employer] for walker. Pending response. Original Note: Walkers The diagnosis creates mobility limitation that significantly impairs ability to participate in the patients activities of daily living either in their entirety, or in a reasonable time frame. Also the patient is able to safely use the walker and the patient?s mobility is sufficiently resolved with the use of the walker and cane has been ruled out.
[2024-08-14] MEDS: Lisinopril 20 MG TABLET PO (12:14)
--- NOTE | 2024-08-14 14:26 | PC.SS ---
Rounding note: pending MRI and neurology recommendations.
--- NOTE | 2024-08-14 16:06 | PC.SS ---
Faxed referral for patient for outpatient PT services.
--- NOTE | 2024-08-14 16:17 | ESPR_ITS ---
<Statement entered by Tonja Ortiz MD - 08/14/24 17:19> Patient was seen and examined by me personally. I agree with most of the assessment and plan as discussed with the manager internet physician, Dr. Geiger, and my attending, Dr. Levy. Patient with pacemaker, pending MRI and echo. Continues to endorse dizziness, however has improved from admission. Seen by PT, recommend FWW and outpatient PT. Tonja Ortiz MD, PGY-3 Documentation for date of: 08/14/24 Subjective Subjective Interval history: Patient was seen and examined bedside. Patient is Kinyarwanda-speaking and communicated with the help of furnace operator and tender through call. Reported that his dizziness is getting better. Denies any other complaints or weakness of extremities. Vitals are stable. Orthostatic vitals done yesterday is within normal limits. CBC and CMP is within normal limits. MRI is still pending as patient had a pacemaker and waiting to confirm about the pacemaker details. Physical therapy was ordered. Lisinopril was resumed which is his home medication. Exam Vital Signs Temp Pulse Resp BP Pulse Ox O2 Del Method 96.9 F 72 17 139/83 H 95 Room Air 08/14/24 12:00 08/14/24 12:14 08/14/24 12:00 08/14/24 12:14 08/14/24 12:00 08/14/24 12:00 Narrative Exam General: Awake and in no acute distress. HEENT: Normocephalic, atraumatic, mucous membranes moist. Heart: Regular rate and rhythm, no murmurs. Pacemaker in situ. Lungs: Clear to auscultation with no wheezing or crackles. Abdomen: Soft, nondistended, nontender, positive bowel sounds. ?No guarding or rebound tenderness. Neurologic: Alert and oriented x3, no gross neurological deficit, and patient able to move all 4 extremities. Extremities: No edema. Skin: No rash or ecchymoses. Objective Labs 08/15/24 05:22 08/15/24 05:22 Labs: Laboratory Results - last 24 hr 08/14/24 04:52 WBC 7.3 RBC 4.69 Hgb 13.7 Hct 40.6 L MCV 87 MCH 29.2 MCHC 33.7 RDW Std Deviation 39.8 Plt Count 191 Neut % (Auto) 68 Lymph % (Auto) 22 Love % (Auto) 7 Eos % (Auto) 3 Baso % (Auto) 0 Neut # (Auto) 5.0 Lymph # (Auto) 1.6 Love # (Auto) 0.5 Eos # (Auto) 0.2 Baso # (Auto) 0.0 Immature Gran # (Auto) 0.01 H Absolute Nucleated RBC 0.00 Immature Gran % 0 Nucleated RBC % 0 Sodium 139 Potassium 3.9 Chloride 103 Carbon Dioxide 25.8 Anion Gap 10 BUN 11 Creatinine 0.7 Estim Creat Clear Calc 88.1 eGFR > 60 BUN/Creatinine Ratio [address] Glu mg/dL 120 Hemoglobin A1c 5.8 Calculated Osmolality 276 Calcium 9.4 TSH 1.76 Quality Measures Quality Measures stroke Suspected type of Stroke: Acute Ischemic Tenecteplase given: Reason(s) Tenecteplase not given: Outside the time window not given Rehab services: PT evaluation ordered VTE Prophylaxis: pharmaceutical Antithrombotic by day 2:: ordered Statin ordered: <75 y/o high intensity dose Anticoagulation ordered for A-fib or flutter (current or hx): not indicated Advance care planning discussed with:: patient Assessment & Plan Assessment Current Active Medications: Generic Name Dose Route Start Last Admin Trade Name Freq PRN Reason Stop Dose Admin Acetaminophen 650 mg 08/13/24 12:27 Acetaminophen 325 Mg Tablet PO 09/12/24 12:26 Q6H PRN PAIN SCALE 1-3 (mild Aspirin 81 mg 08/14/24 09:00 08/14/24 08:48 Aspirin Ec 81 Mg Tabec PO 09/13/24 08:59 81 mg QDAY JOSE Administration Atorvastatin Calcium 40 mg 08/13/24 21:00 08/13/24 20:50 Atorvastatin Calcium 20 Mg Tablet PO 09/12/24 20:59 40 mg HS JOSE Administration Clopidogrel Bisulfate 75 mg 08/14/24 09:00 08/14/24 08:48 Clopidogrel Bisulfate 75 Mg Tablet PO 09/13/24 08:59 75 mg QDAY JOSE Administration Enoxaparin Sodium 40 mg 08/14/24 09:00 08/14/24 08:49 Enoxaparin Sod Inj 40 Mg/0.4 Ml Syringe SC 08/28/24 08:59 40 mg QDAY JOSE Administration Lisinopril 20 mg 08/14/24 10:00 08/14/24 12:14 Lisinopril 20 Mg Tablet PO 09/13/24 09:59 20 mg QDAY JOSE Administration Magnesium Hydroxide 30 ml 08/13/24 12:27 Milk Of Magnesia Susp 30 Ml Udc PO 09/12/24 12:26 QDAY PRN CONSTIPATION Protocol Meclizine HCl 25 mg 08/14/24 09:00 08/14/24 08:49 Meclizine Hcl 25 Mg Tablet PO 09/13/24 08:59 25 mg QDAY JOSE Administration Ondansetron HCl 4 mg 08/13/24 12:27 Ondansetron Inj 2 Mg/Ml Inj 2 Ml IV 09/12/24 12:26 Q6H PRN NAUSEA OR VOMITING Protocol Plan A 74-year-old male with past medical history of hypertension on lisinopril, GERD, and BPH, bradycardia s/p pacemaker in 2020 presented to the hospital with chief complaints of dizziness since 2 days and admitted to rule out stroke. # Dizziness, rule out acute CVA # BPPV versus Acute ischemic stroke rule out Patient presented with dizziness since 1 day. had previous h/o BPPV CT head is negative for any hemorrhage or lesions. CTA head/neck showed no occlusion. Orthostatic vitals are within normal limits. Admitted to telemetry Hemoglobin A1c - 5.8, Lipid panel - WNL except for TG 219, TSH - WNL Nurse swallow screen - passed and started on feeds Plan -Neurologist Dr. Varela was consulted and will follow, appreciate recommendations -Head of bed elevation >30 degrees -Maintain euglycemia and normal temperature -Q4H neuro checks -PT evaluation ordered -Echocardiography with bubble study ordered, Pending -MRI brain with and without contrast ordered, pending -Start aspirin 81 mg daily -Start atorvastatin 40 mg HS daily -started meclizine 25mg PO qday # History of hypertension -Patient is using lisinopril 20 Mg at home. -Blood pressure at the time of admission is 176/98 mmHg Plan - resumed Lisinopril 20mg, his home medication # History of bradycardia s/p pacemaker -EKG done showed sinus rhythm -No active intervention right now. Hospital Maintenance: Dispo: medtele DVT ppx: lovenox GI ppx: not needed Diet: Cardiac IV lines: peripheral Code status: DNR Patient plan of care was discussed with the attending physician, Dr. Levy and senior resident Dr. Angel Geiger, PGY1 Attending Provider Attestation/Addendum I, Jennie Levy DO, attest that I was physically present for the tejeda portions of the service and evaluated the patient with the resident and I reviewed and discussed the case with the resident and agree with the resident's findings and plans of care as documented above Patient seen and evaluated this AM. He states that the dizziness has reduced and was able to walk with PT this morning. Son and are at bedside. Orthostatics negative. Patient has had BPPV in the past. No focal neurological deficits on exam. Pending MRI at this time. F/u with neurology recommendations otherwise.
[2024-08-14] MEDS: ATORVASTATIN CALCIUM 20 MG TABLET 40 MG PO (20:17)
--- NOTE | 2024-08-14 21:05 | PD.NEUROCONS ---
History of Present Illness Data of Consult Requesting Physician: Jennie Levy DO Primary Care Provider: Yazmin Brian PA-C Consult Narrative History of present illness: Mr. Arash Soares is a 74-year-old male with hypertensio, GERD, and BPH, bradycardia s/p pacemaker in 2020 presented to the ER with chief complaints of dizziness since yesterday morning. Stated that after he woke up at 7 AM yesterday patient was walking and he suddenly felt dizziness and generalized weakness. Denies any vision problem or paresthesias. Denies fever, chest pain, shortness of breath, palpitations, nausea, vomiting, diarrhea. Neurology was consulted to evaluate further. Workup in the ER -vitals were blood pressure 176/98 mmHg, pulse rate 64 bpm, respiratory rate 17/min, SpO2 97% with room air -Labs significant for WBC 7, Hb 13, coagulation studies are within normal limits, sodium 139, potassium 3.8, creatinine 0.8, BUN 12, triglycerides 219, rest of the lipid profile is within normal limits. -Imaging: CT head and CTA neck/head is negative and did not show any active lesions right now. -patient was given meclizine, aspirin, atorvastatin -Patient was admitted for stroke rule out in telemetry cc:: cc: Jennie Levy DO Review of Systems Review of Systems Systems Reviewed: All systems reviewed, normal except as documented Past Medical History Past Medical History NEUROLOGIC: Negative Neurological Disorders or Seizures CARDIAC: Positive Cardiac Disorders, Cardiac Arrhythmia, Atherosclerotic Heart Disease and Hypertension; Negative Congestive Heart Failure RESPIRATORY: Positive Asthma; Negative Chronic Obstructive Pulmonary Disease (COPD) GASTROINTESTINAL: Negative Gastrointestinal Disorders GENITOURINARY: Positive Genitourinary Disorders and Benign Prostatic Hyperplasia; Negative Renal Disease MUSCULOSKELETAL: Negative Musculoskeletal Disorders ENDOCRINE: Positive Endocrine Disorders and Diabetes Mellitus Type 2; Negative Diabetes Mellitus Type 1 OTHER HISTORY: Negative Blood Transfusions, Blood Transfusion Reaction or Anesthesia Reactions Family History FAMILY HISTORY: Negative Family Cardiac Disorders Surgical History SURGICAL: Positive Abdominal Surgery and Amputation; Negative Ear Surgery Social History SMOKING STATUS: Never smoker SUBSTANCE USE: does not use Travel History EBOLA RISK: No Meds Home Medications and Allergies Home Medications ?Medication ?Instructions ?Recorded ?Confirmed ?Type tamsulosin 0.4 mg capsule 0.4 mg PO QHS 07/19/20 08/13/24 History atorvastatin 20 mg tablet 20 mg PO HS 02/01/23 08/13/24 History aspirin 81 mg tablet,delayed 81 mg PO QDAY 08/13/24 08/13/24 History release lisinopril 20 mg tablet 20 mg PO QDAY 08/13/24 08/13/24 History Allergies Allergy/AdvReac Type Severity Reaction Status Date / Time No Known Allergies Allergy Verified 08/13/24 08:28 Exam - Neurology Vital Signs Temp Pulse Resp BP Pulse Ox O2 Del Method 98.1 F 67 16 119/79 97 Room Air 08/14/24 20:00 08/14/24 20:00 08/14/24 20:00 08/14/24 20:00 08/14/24 20:00 08/14/24 20:00 Narrative Exam GENERAL APPEARANCE: Well hydrated, well-nourished in no acute distress. HEENT: Normocephalic, atraumatic, extraocular movements intact. Pupils: Equal reacting to light and accommodation, no nystagmus noted. NECK: Supple, no JVD or bruits. CARDIOVASULAR: Heart: S1, S2 heard, regular without S3-S4 or murmur no rubs or gallops. LUNGS/CHEST: Clear to auscultation bilaterally. No rails, rhonchi, or wheezing. Normal inspection. ABDOMEN: Soft, nontender, with normal bowel sounds. No pulsatile masses. No rebound, rigidity, or guarding. Normal inspection and palpation. EXTREMITIES: Normal inspection and palpation. No edema, clubbing or cyanosis. SKIN: Warm and dry without rashes. Normal inspection. MUSCULOSKELETAL: No cervical, thoracic, lumbar or midline bony tenderness. Normal inspection. NEURO: Alert, awake and oriented x3. Cranial nerves: II through XII grossly intact. Speech and language: Normal with no dysarthria or dysphasia. Motor system: Tone and bulk: Normal: Strength: 5 out of 5 in all 4 extremities; No pronator drift noted. Deep tendon reflexes: 2+ bilaterally symmetrical. Plantar reflex: Downgoing bilaterally. Sensory system: Intact to all modalities of sensation bilaterally. Coordination: Intact to [id number] and [id number]-[id number]-[id number] test bilaterally. No ataxia, no dysmetria, or dysdiadochokinesia noted. No intention tremors noted. Gait: Normal. Toe, heel, tandem walk all are normal. Romberg: Negative. No signs of meningeal irritation noted. PSYCHIATRIC: Normal mood and affect. Results Labs 08/14/24 04:52 08/14/24 04:52 Labs: Short CBC 08/14/24 Range/Units 04:52 WBC 7.3 (3.8-10.6) Thou/mm3 Hgb 13.7 (13.5-16.0) g/dL Hct 40.6 L (41.0-53.0) % Plt Count 191 (140-440) Thou/mm3 BMP 08/14/24 04:52 Sodium 139 Potassium 3.9 Chloride 103 Carbon Dioxide 25.8 BUN 11 Creatinine 0.7 Glucose 99 Calcium 9.4 Assessment & Plan Assessment and plan (1) Dizziness: Status: Acute Assessment and plan: Suspect vertebrobasilar insufficiency/brainstem TIA Follow-up with MRI brain Advised to avoid sudden changes in position and drink plenty of fluids Continue with aspirin, statin and blood pressure control (2) Hypertension: Status: Acute Assessment and plan: Continue to monitor closely and hold blood pressure medications if low
[2024-08-15] VITALS (7 sets, daily range): BP systolic 113–156; BP diastolic 73–99; PULSE 61–80; RESP 10–16; TEMP 36.2–37; O2SAT 94–98
[2024-08-15 06:03] LABS: Basophils % (Auto) 0 % (0-2.5); Eosinophils # (Auto) 0.2 Thou/mm3 (0.0-0.5); Eosinophils % (Auto) 2 % (0-10); Hematocrit 40.1 % (41.0-53.0); Hemoglobin 13.7 g/dL (13.5-16.0); Immature Granulocytes % (Auto) 0 % (0-0); Immature Granulocytes Auto 0.02 Thou/mm3 (0.00-0.00); Lymphocytes # (Auto) 2.1 Thou/mm3 (1.0-4.8); Lymphocytes % (Auto) 23 % (10-50); Mean Corpuscular HGB Conc 34.2 g/dl (31.0-37.0); Mean Corpuscular Hemoglobin 29.3 pg (25.0-35.0); Mean Corpuscular Volume 86 fL (80-100); Monocytes # (Auto) 0.6 Thou/mm3 (0.0-0.8); Monocytes % (Auto) 7 % (0-12); Neutrophils # (Auto) 6.2 Thou/mm3 (1.8-7.7); Neutrophils % (Auto) 68 % (37-80); Nucleated Red Blood Cell % 0 /100 WBC (0); Platelet Count 181 Thou/mm3 (140-440); Red Blood Count 4.68 Miln/mm3 (4.50-5.90); White Blood Count 9.2 Thou/mm3 (3.8-10.6)
[2024-08-15 06:30] LABS: Anion Gap 8 (7-16); BUN/Creatinine Ratio 19 Ratio (12-20); Blood Urea Nitrogen 15 mg/dL (9-23); Calcium 9.2 mg/dL (8.3-10.6); Carbon Dioxide 25.1 mMol/L (20.0-31.0); Chloride 103 mMol/L (98-107); Creatinine (Component) 0.8 mg/dL (0.6-1.3); Estimated Creatinine Clearance 77.1 mL/min (>60); Glucose 117 mg/dL (74-106); Osmolality,Calculated 273 (275-295); Potassium 3.9 mMol/L (3.4-5.1); Sodium 136 mMol/L (136-145); eGFR > 60 See Note
[2024-08-15] MEDS: ASPIRIN EC 81 MG TABEC PO (09:32)
[2024-08-15] MEDS: ENOXAPARIN SOD INJ 40 MG/0.4 ML SYRINGE SC (09:32)
[2024-08-15] MEDS: CLOPIDOGREL BISULFATE 75 MG TABLET PO (09:32)
[2024-08-15] MEDS: Lisinopril 20 MG TABLET PO (09:32)
[2024-08-15] MEDS: MECLIZINE HCL 25 MG TABLET PO (09:32)
--- NOTE | 2024-08-15 12:09 | PD.IMCONS ---
HPI Data of Consult Requesting Physician: Jennie Levy DO Primary Care Provider: Yazmin Brian PA-C Consult Narrative History of present illness: This is a 74-year-old male with past medical history of hypertension on lisinopril, GERD, and BPH, bradycardia s/p pacemaker in 2020 pt [facility] admitted with dizziness - possible CVA MRI of the head recommended ; cardioogy consulted as patient has a pacemaker pt has a pacemaker [id number] 2020 - [employer] pacemaker This is a MRI safe Pacemaker cc:: cc: Jennie Levy DO Meds Home Medications and Allergies Home Medications ?Medication ?Instructions ?Recorded ?Confirmed ?Type tamsulosin 0.4 mg capsule 0.4 mg PO QHS 07/19/20 08/13/24 History atorvastatin 20 mg tablet 20 mg PO HS 02/01/23 08/13/24 History aspirin 81 mg tablet,delayed 81 mg PO QDAY 08/13/24 08/13/24 History release lisinopril 20 mg tablet 20 mg PO QDAY 08/13/24 08/13/24 History Allergies Allergy/AdvReac Type Severity Reaction Status Date / Time No Known Allergies Allergy Verified 08/13/24 08:28 Exam Vital Signs Temp Pulse Resp BP Pulse Ox O2 Del Method 97.2 F 74 16 156/99 H 97 Room Air 08/15/24 08:00 08/15/24 09:32 08/15/24 08:00 08/15/24 09:32 08/15/24 08:00 08/15/24 08:00 Routine HEENT Exam Head: Present normocephalic and atraumatic Eye: Present EOMI and PERRL ENT: Present mucous membranes moist Routine Neck Exam Neck: Present supple and trachea midline Routine Respiratory Exam Respiratory: Present chest non-tender, lungs clear, normal breath sounds and no resp distress Routine Cardiovascular Exam Cardiovascular: Present RRR Routine Abdominal Exam Abdominal: Present soft and normoactive bowel sounds Routine Extremities Exam Extremities: Present full ROM Routine Skin Exam Skin: Present intact, dry and warm Results Labs 08/15/24 05:22 08/15/24 05:22 Labs: Short CBC 08/15/24 Range/Units 05:22 WBC 9.2 (3.8-10.6) Thou/mm3 Hgb 13.7 (13.5-16.0) g/dL Hct 40.1 L (41.0-53.0) % Plt Count 181 (140-440) Thou/mm3 [facility] 08/15/24 05:22 Sodium 136 Potassium 3.9 Chloride 103 Carbon Dioxide 25.1 BUN 15 Creatinine 0.8 Glucose 117 H Calcium 9.2 Assessment and Plan Assessment and plan (1) Dizziness: Status: Acute (2) Transient cerebral ischemia: Status: Acute (3) Benign paroxysmal positional vertigo: Status: Acute (4) Hypertension: Status: Acute (5) S/P cardiac pacemaker procedure: Status: Acute Additional Assessment & Plan Additional Plan: pt has a [employer] pacemaker thsi is a MRI safe Pacemaker may proceed with MRI
--- NOTE | 2024-08-15 13:26 | CHAP ---
09:30 AM Visited by spiritual care volunteer Provided prayer for Patient.
--- NOTE | 2024-08-15 15:05 | ESPR_ITS ---
<Statement entered by Tonja Ortiz MD - 08/15/24 16:09> Patient was seen and examined by me personally. I agree with most of the assessment and plan as discussed with the internet media planner physician, and my attending, Dr. Levy. Cardiology stated pacemaker is compatible for MRI. Will discuss with MRI team. Echo was negative for bubble study, and EF noted to be 50%. Will encourage patient to work with PT and ambulate. Tonja Ortiz MD, PGY-3 Documentation for date of: 08/15/24 Subjective Subjective Interval history: Patient was seen and examined by the bedside. Denies any complaints and stated that his dizziness is getting improved. Vitals are stable. Laboratory values are unremarkable. Still MRI is pending Exam Vital Signs Temp Pulse Resp BP Pulse Ox O2 Del Method 97.7 F 70 15 143/92 H 97 Room Air 08/15/24 12:00 08/15/24 12:00 08/15/24 12:00 08/15/24 12:00 08/15/24 12:00 08/15/24 12:00 Narrative Exam General: Awake and in no acute distress. HEENT: Normocephalic, atraumatic, mucous membranes moist. Heart: Regular rate and rhythm, no murmurs. Pacemaker in situ. Lungs: Clear to auscultation with no wheezing or crackles. Abdomen: Soft, nondistended, nontender, positive bowel sounds. ?No guarding or rebound tenderness. Neurologic: Alert and oriented x3, no gross neurological deficit, and patient able to move all 4 extremities. Extremities: No edema. Skin: No rash or ecchymoses. Objective Labs 08/15/24 05:22 08/15/24 05:22 Labs: Laboratory Results - last 24 hr 08/15/24 05:22 WBC 9.2 RBC 4.68 Hgb 13.7 Hct 40.1 L MCV 86 MCH 29.3 MCHC 34.2 RDW Std Deviation 40.0 Plt Count 181 Neut % (Auto) 68 Lymph % (Auto) 23 [place] % (Auto) 7 Eos % (Auto) 2 Baso % (Auto) 0 Neut # (Auto) 6.2 Lymph # (Auto) 2.1 [place] # (Auto) 0.6 Eos # (Auto) 0.2 Baso # (Auto) 0.0 Immature Gran # (Auto) 0.02 H Absolute Nucleated RBC 0.00 Immature Gran % 0 Nucleated RBC % 0 Sodium 136 Potassium 3.9 Chloride 103 Carbon Dioxide 25.1 Anion Gap 8 BUN 15 Creatinine 0.8 Estim Creat Clear Calc 77.1 eGFR > 60 BUN/Creatinine Ratio 19 Glucose 117 H Calculated Osmolality 273 L Calcium 9.2 Quality Measures Quality Measures stroke Suspected type of Stroke: Acute Ischemic Tenecteplase given: Reason(s) Tenecteplase not given: Outside the time window not given Rehab services: PT evaluation ordered VTE Prophylaxis: pharmaceutical Antithrombotic by day 2:: ordered Statin ordered: <75 y/o high intensity dose Anticoagulation ordered for A-fib or flutter (current or hx): not indicated Advance care planning discussed with:: patient Assessment & Plan Assessment Current Active Medications: Generic Name Dose Route Start Last Admin Trade Name Freq PRN Reason Stop Dose Admin Acetaminophen 650 mg 08/13/24 12:27 Acetaminophen 325 Mg Tablet PO 09/12/24 12:26 Q6H PRN PAIN SCALE 1-3 (mild Aspirin 81 mg 08/14/24 09:00 08/15/24 09:32 Aspirin Ec 81 Mg Tabec PO 09/13/24 08:59 81 mg QDAY JOSE Administration Atorvastatin Calcium 40 mg 08/13/24 21:00 08/14/24 20:17 Atorvastatin Calcium 20 Mg Tablet PO 09/12/24 20:59 40 mg HS JOSE Administration Clopidogrel Bisulfate 75 mg 08/14/24 09:00 08/15/24 09:32 Clopidogrel Bisulfate 75 Mg Tablet PO 09/13/24 08:59 75 mg QDAY JOSE Administration Enoxaparin Sodium 40 mg 08/14/24 09:00 08/15/24 09:32 Enoxaparin Sod Inj 40 Mg/0.4 Ml Syringe SC 08/28/24 08:59 40 mg QDAY JOSE Administration Lisinopril 20 mg 08/14/24 10:00 08/15/24 09:32 Lisinopril 20 Mg Tablet PO 09/13/24 09:59 20 mg QDAY JOSE Administration Magnesium Hydroxide 30 ml 08/13/24 12:27 Milk Of Magnesia Susp 30 Ml Udc PO 09/12/24 12:26 QDAY PRN CONSTIPATION Protocol Meclizine HCl 25 mg 08/14/24 09:00 08/15/24 09:32 Meclizine Hcl 25 Mg Tablet PO 09/13/24 08:59 25 mg QDAY JOSE Administration Ondansetron HCl 4 mg 08/13/24 12:27 Ondansetron Inj 2 Mg/Ml Inj 2 Ml IV 09/12/24 12:26 Q6H PRN NAUSEA OR VOMITING Protocol Plan A 74-year-old male with past medical history of hypertension on lisinopril, GERD, and BPH, bradycardia s/p pacemaker in 2020 presented to the hospital with chief complaints of dizziness since 2 days and admitted to rule out stroke. # Dizziness, rule out acute CVA # BPPV versus Acute ischemic stroke rule out Patient presented with dizziness since 1 day. had previous h/o BPPV CT head is negative for any hemorrhage or lesions. CTA head/neck showed no occlusion. Orthostatic vitals are within normal limits. Admitted to telemetry Hemoglobin A1c - 5.8, Lipid panel - WNL except for TG 219, TSH - WNL Nurse swallow screen - passed and started on feeds Plan -Neurologist Dr. Varela was consulted and will follow, appreciate recommendations -Head of bed elevation >30 degrees -Maintain euglycemia and normal temperature -Q4H neuro checks -PT evaluation ordered -Echocardiography with bubble study ordered -EF 50% -MRI brain with and without contrast ordered, pending -Start aspirin 81 mg daily -Start atorvastatin 40 mg HS daily -started meclizine 25mg PO qday # History of hypertension -Patient is using lisinopril 20 Mg at home. -Blood pressure at the time of admission is 176/98 mmHg Plan - resumed Lisinopril 20mg, his home medication # History of bradycardia s/p pacemaker -EKG done showed sinus rhythm -No active intervention right now. Hospital Maintenance: Dispo: medtele DVT ppx: lovenox GI ppx: not needed Diet: Cardiac IV lines: peripheral Code status: DNR Patient plan of care was discussed with the attending physician, Dr. Levy and senior resident Dr. Angel Geiger, PGY1 Attending Provider Attestation/Addendum Jacoby, Jennie Levy, , attest that I was physically present for the tejeda portions of the service and evaluated the patient with the resident and I reviewed and discussed the case with the resident and agree with the resident's findings and plans of care as documented above Patient seen and evaluated this AM. Pending MRI requiring clearance from cardiology. Patient otherwise states that dizziness is less today. Anticipate DC within next 24h once MRI is done. F/u with neurology recommendations.
[2024-08-15] MEDS: ATORVASTATIN CALCIUM 20 MG TABLET 40 MG PO (20:10)
--- NOTE | 2024-08-15 23:43 | VVPN_ITS ---
Telemedicine visit statement This visit was conducted with the use of phone was obtained on 08/15/24 at 2343. Documentation for date of: 08/15/24 Subjective Subjective Interval history: Patient is in telemetry. His dizziness and vertigo have improved significantly. MRI has not been done. Pacemaker's compatibility has been established. Virtual exam Vital Signs Temp Pulse Resp BP Pulse Ox O2 Del Method 98.0 F 80 10 L 120/73 98 Room Air 08/15/24 20:00 08/15/24 20:00 08/15/24 20:00 08/15/24 20:00 08/15/24 20:00 08/15/24 20:00 Objective Labs 08/15/24 05:22 08/15/24 05:22 Labs: Laboratory Results - last 24 hr 08/15/24 05:22 WBC 9.2 RBC 4.68 Hgb 13.7 Hct 40.1 L MCV 86 MCH 29.3 MCHC 34.2 RDW Std Deviation 40.0 Plt Count 181 Neut % (Auto) 68 Lymph % (Auto) 23 [place] % (Auto) 7 Eos % (Auto) 2 Baso % (Auto) 0 Neut # (Auto) 6.2 Lymph # (Auto) 2.1 [place] # (Auto) 0.6 Eos # (Auto) 0.2 Baso # (Auto) 0.0 Immature Gran # (Auto) 0.02 H Absolute Nucleated RBC 0.00 Immature Gran % 0 Nucleated RBC % 0 Sodium 136 Potassium 3.9 Chloride 103 Carbon Dioxide 25.1 Anion Gap 8 BUN 15 Creatinine 0.8 Estim Creat Clear Calc 77.1 eGFR > 60 BUN/Creatinine Ratio 19 Glucose 117 H Calculated Osmolality 273 L Calcium 9.2 Assessment & Plan Problem List (1) Dizziness: Status: Acute Assessment and plan: Follow-up with MRI brain as it becomes available. Follow-up with the physical therapy evaluation (2) S/P cardiac pacemaker procedure: Status: Acute Assessment and plan: Pacemaker is MRI compatible and we will proceed with getting the MRI tomorrow. (3) Hypertension: Status: Acute Assessment and plan: Blood pressure is running on the low side
[2024-08-16] VITALS (17 sets, daily range): BP systolic 108–145; BP diastolic 65–97; PULSE 60–91; RESP 13–20; TEMP 36.2–36.9; O2SAT 94–97
--- NOTE | 2024-08-16 | XR_ITS ---
Examinations: MRI Brain without intravenous contrast. MRA brain without intravenous contrast. MRA carotids without intravenous contrast 3-D vascular reconstructions Date and time of exam: August 16, 2024 1605 hours INDICATIONS: Acute onset dizziness head pain beginning August 13, 2024 Technique: Multiple axial and sagittal images of the brain have been obtained MRA brain carotid images without contrast obtained, including 3-D postprocessing, vascular maximum intensity projection images Findings: [place] is not enlarged. The optic chiasm and infundibular stalk are not remarkable. Prepontine and interpeduncular cisterns are not enlarged. No localized enlargement of the medulla or sky. Fourth ventricle and cerebellar tonsils normal in position. Subacute hemorrhage is not seen. Fourth ventricle is midline. Mass in the cerebellopontine angle region is not evident. 7th and 8th nerve complexes exhibits symmetry. Globes are symmetrical with no retro-orbital mass. Increased white matter signal evident, especially right frontal parietal lobe Diffusion-weighted images demonstrate no focus of restricted diffusion Mass-effect upon the ventricular system is not identified. MRA carotid images degraded by patient motion. MRA brain images moderate cerebral arterial irregularity Impression: Negative for acute hemorrhage or mass effect No acute infarct Prominent white matter foci in the right frontal parietal lobe, these may relate to infarcts, however, recommend this patient return for MRI brain post contrast to exclude neoplastic lesions in the right frontal parietal
[2024-08-16 05:41] LABS: Basophils % (Auto) 0 % (0-2.5); Eosinophils # (Auto) 0.2 Thou/mm3 (0.0-0.5); Eosinophils % (Auto) 2 % (0-10); Hematocrit 42.1 % (41.0-53.0); Hemoglobin 14.2 g/dL (13.5-16.0); Immature Granulocytes % (Auto) 0 % (0-0); Immature Granulocytes Auto 0.04 Thou/mm3 (0.00-0.00); Lymphocytes % (Auto) 20 % (10-50); Mean Corpuscular HGB Conc 33.7 g/dl (31.0-37.0); Mean Corpuscular Volume 86 fL (80-100); Monocytes # (Auto) 0.7 Thou/mm3 (0.0-0.8); Monocytes % (Auto) 7 % (0-12); Neutrophils % (Auto) 70 % (37-80); Nucleated Red Blood Cell % 0 /100 WBC (0); Platelet Count 172 Thou/mm3 (140-440); RDW Standard Deviation 40.4 fL (35.1-43.9); Red Blood Count 4.89 Miln/mm3 (4.50-5.90); White Blood Count 10.1 Thou/mm3 (3.8-10.6)
[2024-08-16 06:35] LABS: Anion Gap 9 (7-16); BUN/Creatinine Ratio 20 Ratio (12-20); Blood Urea Nitrogen 16 mg/dL (9-23); Calcium 9.5 mg/dL (8.3-10.6); Carbon Dioxide 25.1 mMol/L (20.0-31.0); Chloride 102 mMol/L (98-107); Creatinine (Component) 0.8 mg/dL (0.6-1.3); Estimated Creatinine Clearance 76.9 mL/min (>60); Glucose 113 mg/dL (74-106); Osmolality,Calculated 274 (275-295); Potassium 4.2 mMol/L (3.4-5.1); Sodium 136 mMol/L (136-145); eGFR > 60 See Note
[2024-08-16] MEDS: Lisinopril 20 MG TABLET PO (08:05)
[2024-08-16] MEDS: CLOPIDOGREL BISULFATE 75 MG TABLET PO (08:05)
[2024-08-16] MEDS: MECLIZINE HCL 25 MG TABLET PO (08:06)
[2024-08-16] MEDS: ENOXAPARIN SOD INJ 40 MG/0.4 ML SYRINGE SC (08:06)
[2024-08-16] MEDS: ASPIRIN EC 81 MG TABEC PO (08:11)
--- NOTE | 2024-08-16 15:28 | ESPR_ITS ---
<Statement entered by Tonja Ortiz MD - 08/16/24 19:03> Patient was seen and examined by me personally. I agree with most of the assessment and plan as discussed with the internet developer physician, and my attending, Dr. Taylor. Pending MRI. Anticipate DC in 24 hours. Will follow up with neuro for further recs. Tonja Ortiz MD, PGY-3 Documentation for date of: 08/16/24 Subjective Subjective Interval history: Patient was seen and examined by the bedside. No acute overnight events. Denies any other complaints and stated that his dizziness is getting improved. Vitals are stable. Physical examination remains unremarkable. Labs are unremarkable Still MRI is pending. Exam Vital Signs Temp Pulse Resp BP Pulse Ox O2 Del Method 98.0 F 65 16 108/82 97 Room Air 08/16/24 11:54 08/16/24 12:00 08/16/24 11:54 08/16/24 11:54 08/16/24 11:54 08/16/24 11:54 Narrative Exam General: Awake and in no acute distress. HEENT: Normocephalic, atraumatic, mucous membranes moist. Heart: Regular rate and rhythm, no murmurs. Lungs: Clear to auscultation with no wheezing or crackles. Abdomen: Soft, nondistended, nontender, positive bowel sounds. ?No guarding or rebound tenderness. Neurologic: Alert and oriented x3, no gross neurological deficit, and patient able to move all 4 extremities. Extremities: No edema. Skin: No rash or ecchymoses. Objective Labs 08/17/24 05:45 08/17/24 05:45 Labs: Laboratory Results - last 24 hr 08/16/24 05:15 WBC 10.1 RBC 4.89 Hgb 14.2 Hct 42.1 MCV 86 MCH 29.0 MCHC 33.7 RDW Std Deviation 40.4 Plt Count 172 Neut % (Auto) 70 Lymph % (Auto) 20 [place] % (Auto) 7 Eos % (Auto) 2 Baso % (Auto) 0 Neut # (Auto) 7.0 Lymph # (Auto) 2.0 [place] # (Auto) 0.7 Eos # (Auto) 0.2 Baso # (Auto) 0.0 Immature Gran # (Auto) 0.04 H Absolute Nucleated RBC 0.00 Immature Gran % 0 Nucleated RBC % 0 Sodium 136 Potassium 4.2 Chloride 102 Carbon Dioxide 25.1 Anion Gap 9 BUN 16 Creatinine 0.8 Estim Creat Clear Calc 76.9 eGFR > 60 BUN/Creatinine Ratio 20 Glucose 113 H Calculated Osmolality 274 L Calcium 9.5 Quality Measures Quality Measures stroke Suspected type of Stroke: Acute Ischemic Tenecteplase given: Reason(s) Tenecteplase not given: Outside the time window not given Rehab services: PT evaluation ordered VTE Prophylaxis: pharmaceutical Antithrombotic by day 2:: ordered Statin ordered: <75 y/o high intensity dose Anticoagulation ordered for A-fib or flutter (current or hx): not indicated Advance care planning discussed with:: patient Assessment & Plan Assessment Current Active Medications: Generic Name Dose Route Start Last Admin Trade Name Freq PRN Reason Stop Dose Admin Acetaminophen 650 mg 08/13/24 12:27 Acetaminophen 325 Mg Tablet PO 09/12/24 12:26 Q6H PRN PAIN SCALE 1-3 (mild Aspirin 81 mg 08/14/24 09:00 08/16/24 08:11 Aspirin Ec 81 Mg Tabec PO 09/13/24 08:59 81 mg QDAY JOSE Administration Atorvastatin Calcium 40 mg 08/13/24 21:00 08/15/24 20:10 Atorvastatin Calcium 20 Mg Tablet PO 09/12/24 20:59 40 mg HS JOSE Administration Clopidogrel Bisulfate 75 mg 08/14/24 09:00 08/16/24 08:05 Clopidogrel Bisulfate 75 Mg Tablet PO 09/13/24 08:59 75 mg QDAY JOSE Administration Enoxaparin Sodium 40 mg 08/14/24 09:00 08/16/24 08:06 Enoxaparin Sod Inj 40 Mg/0.4 Ml Syringe SC 08/28/24 08:59 40 mg QDAY JOSE Administration Lisinopril 20 mg 08/14/24 10:00 08/16/24 08:05 Lisinopril 20 Mg Tablet PO 09/13/24 09:59 20 mg QDAY JOSE Administration Magnesium Hydroxide 30 ml 08/13/24 12:27 Milk Of Magnesia Susp 30 Ml Udc PO 09/12/24 12:26 QDAY PRN CONSTIPATION Protocol Meclizine HCl 25 mg 08/14/24 09:00 08/16/24 08:06 Meclizine Hcl 25 Mg Tablet PO 09/13/24 08:59 25 mg QDAY JOSE Administration Ondansetron HCl 4 mg 08/13/24 12:27 Ondansetron Inj 2 Mg/Ml Inj 2 Ml IV 09/12/24 12:26 Q6H PRN NAUSEA OR VOMITING Protocol Plan A 74-year-old male with past medical history of hypertension on lisinopril, GERD, and BPH, bradycardia s/p pacemaker in 2020 presented to the hospital with chief complaints of dizziness since 2 days and admitted to rule out stroke. # Dizziness, rule out acute CVA # BPPV versus Acute ischemic stroke rule out Patient presented with dizziness since 1 day. had previous h/o BPPV CT head is negative for any acute hemorrhage or lesions. CTA head/neck showed no occlusion. Orthostatic vitals are within normal limits. Admitted to telemetry Hemoglobin A1c - 5.8, Lipid panel - WNL except for TG 219, TSH - WNL Nurse swallow screen - passed and started on feeds Plan -Neurologist Dr. Varela was consulted and will follow, appreciate recommendations -Head of bed elevation >30 degrees -Maintain euglycemia and normal temperature -Q4H neuro checks -PT evaluation is done and patient is able to ambulate without any assistance. -Echocardiography with bubble study ordered -EF 50% -MRI brain with and without contrast ordered, pending -Will continue aspirin 81 mg daily -Will continue atorvastatin 40 mg HS daily -started meclizine 25mg PO qday # History of hypertension -Patient is using lisinopril 20 Mg at home. -Blood pressure at the time of admission is 176/98 mmHg Plan - resumed Lisinopril 20mg, his home medication # History of bradycardia s/p pacemaker -EKG done showed sinus rhythm -No active intervention right now. Hospital Maintenance: Dispo: medtele DVT ppx: lovenox GI ppx: not needed Diet: Cardiac IV lines: peripheral Code status: DNR Patient plan of care was discussed with the attending physician, Dr. Taylor and senior resident Dr. Angel Geiger, PGY1 Attending Provider Attestation/Addendum I reviewed labs, imaging, EKG, home medications and prior available records. Face to face evaluation was performed by me. I have personally examined the patient and discussed assessment and plan with the IM team. I reviewed the resident note and agree with the plan with exceptions as below. CVA symptoms: Patient is still pending brain MRI. Pending verification of his pacemaker. Continue aspirin and atorvastatin. BPH: Continue tamsulosin. Hypertension: Resume lisinopril.
--- NOTE | 2024-08-16 16:05 | PC.NURSE ---
0169 patient scheduled for MRI stroke protocol, connected to playground monitor, HR set up to 90 by biotronic registered representative, will monitor patient
--- NOTE | 2024-08-16 16:33 | PC.NURSE ---
patient had MRI stroke protocol, no abnormal arrhthmia noted, patient will be taken back to room 278
[2024-08-16] MEDS: ATORVASTATIN CALCIUM 20 MG TABLET 40 MG PO (20:15)
--- NOTE | 2024-08-16 23:52 | ESPR_ITS ---
Documentation for date of: 08/16/24 Subjective Subjective Interval history: Mr. Arash Soares was seen in the telemetry today with his family at the bedside. No recurrent symptoms reported. Feels tired and lack of energy in both lower extremities but Exam - Neurology Vital Signs Temp Pulse Resp BP Pulse Ox O2 Del Method 98.2 F 74 15 122/66 96 Room Air 08/16/24 20:00 08/16/24 20:00 08/16/24 20:00 08/16/24 20:00 08/16/24 20:00 08/16/24 20:00 Narrative Exam GENERAL APPEARANCE: Well hydrated, well-nourished in no acute distress. HEENT: Normocephalic, atraumatic, extraocular movements intact. Pupils: Equal reacting to light and accommodation, no nystagmus noted. NECK: Supple, no JVD or bruits. CARDIOVASULAR: Heart: S1, S2 heard, regular without S3-S4 or murmur no rubs or gallops. LUNGS/CHEST: Clear to auscultation bilaterally. No rails, rhonchi, or wheezing. Normal inspection. ABDOMEN: Soft, nontender, with normal bowel sounds. No pulsatile masses. No rebound, rigidity, or guarding. Normal inspection and palpation. EXTREMITIES: Normal inspection and palpation. No edema, clubbing or cyanosis. SKIN: Warm and dry without rashes. Normal inspection. MUSCULOSKELETAL: No cervical, thoracic, lumbar or midline bony tenderness. Normal inspection. NEURO: Alert, awake and oriented x3. Cranial nerves: II through XII grossly intact. Speech and language: Normal with no dysarthria or dysphasia. Motor system: Tone and bulk: Normal: Strength: 5 out of 5 in all 4 extremities; No pronator drift noted. Deep tendon reflexes: 2+ bilaterally symmetrical. Plantar reflex: Downgoing bilaterally. Sensory system: Intact to all modalities of sensation bilaterally. Coordination: Intact to [id number] and lwfk-[id number] test bilaterally. No ataxia, no dysmetria, or dysdiadochokinesia noted. No intention tremors noted. Gait: Normal. Toe, heel, tandem walk all are normal. Romberg: Negative. No signs of meningeal irritation noted. PSYCHIATRIC: Normal mood and affect. Objective Labs 08/16/24 05:15 08/16/24 05:15 Labs: Laboratory Results - last 24 hr 12/04/24 05:15 WBC 10.1 RBC 4.89 Hgb 14.2 Hct 42.1 MCV 86 MCH 29.0 MCHC 33.7 RDW Std Deviation 40.4 Plt Count 172 Neut % (Auto) 70 Lymph % (Auto) 20 [place] % (Auto) 7 Eos % (Auto) 2 Baso % (Auto) 0 Neut # (Auto) 7.0 Lymph # (Auto) 2.0 [place] # (Auto) 0.7 Eos # (Auto) 0.2 Baso # (Auto) 0.0 Immature Gran # (Auto) 0.04 H Absolute Nucleated RBC 0.00 Immature Gran % 0 Nucleated RBC % 0 Sodium 136 Potassium 4.2 Chloride 102 Carbon Dioxide 25.1 Anion Gap 9 BUN 16 Creatinine 0.8 Estim Creat Clear Calc 76.9 eGFR > 60 BUN/Creatinine Ratio 20 Glucose 113 H Calculated Osmolality 274 L Calcium 9.5 Assessment & Plan Assessment and plan (1) Dizziness: Status: Acute Assessment and plan: Suspect vertebrobasilar insufficiency/brainstem TIA MRI brain showed no acute infarction, prominent chronic white matter changes in the right frontal and parietal area suspicious for old infarct radiologist recommended postcontrast MRI to rule out neoplasm. Advised to avoid sudden changes in position and drink plenty of fluids Continue with aspirin, statin and blood pressure control (2) S/P cardiac pacemaker procedure: Status: Acute (3) Hypertension: Status: Acute Assessment and plan: Continue to monitor closely and hold blood pressure medications if low
[2024-08-17] VITALS: BP 116/72; PULSE 61; PULSE 72; RESP 19; TEMP 36.3; O2SAT 96
[2024-08-17 04:00] VITALS: BP 115/69; PULSE 67; PULSE 75; RESP 17; TEMP 36.2; O2SAT 97
[2024-08-17 05:59] LABS: Basophils % (Auto) 0 % (0-2.5); Eosinophils # (Auto) 0.3 Thou/mm3 (0.0-0.5); Eosinophils % (Auto) 2 % (0-10); Hemoglobin 13.9 g/dL (13.5-16.0); Immature Granulocytes % (Auto) 0 % (0-0); Immature Granulocytes Auto 0.04 Thou/mm3 (0.00-0.00); Lymphocytes # (Auto) 2.3 Thou/mm3 (1.0-4.8); Lymphocytes % (Auto) 19 % (10-50); Mean Corpuscular HGB Conc 33.9 g/dl (31.0-37.0); Mean Corpuscular Hemoglobin 28.9 pg (25.0-35.0); Mean Corpuscular Volume 85 fL (80-100); Monocytes % (Auto) 9 % (0-12); Neutrophils # (Auto) 8.3 Thou/mm3 (1.8-7.7); Neutrophils % (Auto) 70 % (37-80); Nucleated Red Blood Cell % 0 /100 WBC (0); Platelet Count 195 Thou/mm3 (140-440); RDW Standard Deviation 39.9 fL (35.1-43.9); Red Blood Count 4.81 Miln/mm3 (4.50-5.90)
[2024-08-17 06:37] LABS: Anion Gap 9 (7-16); BUN/Creatinine Ratio 22 Ratio (12-20); Blood Urea Nitrogen 20 mg/dL (9-23); Calcium 9.4 mg/dL (8.3-10.6); Carbon Dioxide 27.2 mMol/L (20.0-31.0); Chloride 102 mMol/L (98-107); Creatinine (Component) 0.9 mg/dL (0.6-1.3); Estimated Creatinine Clearance 68.4 mL/min (>60); Glucose 118 mg/dL (74-106); Osmolality,Calculated 279 (275-295); Potassium 4.2 mMol/L (3.4-5.1); Sodium 138 mMol/L (136-145); eGFR > 60 See Note
[2024-08-17 08:00] VITALS: BP 107/63; PULSE 69; PULSE 80; RESP 12; TEMP 36.6; O2SAT 96
[2024-08-17 08:47] VITALS: BP 107/63; PULSE 69
[2024-08-17] MEDS: MECLIZINE HCL 25 MG TABLET PO (08:47)
[2024-08-17] MEDS: CLOPIDOGREL BISULFATE 75 MG TABLET PO (08:47)
[2024-08-17] MEDS: ASPIRIN EC 81 MG TABEC PO (08:47)
[2024-08-17] MEDS: Lisinopril 20 MG TABLET PO (08:47)
[2024-08-17] MEDS: ENOXAPARIN SOD INJ 40 MG/0.4 ML SYRINGE SC (08:50)
[2024-08-17 12:00] VITALS: BP 135/86; PULSE 81; PULSE 90; RESP 15; TEMP 36.8; O2SAT 98
--- NOTE | 2024-08-17 12:45 | PC.NURSE ---
ok to discharge per dr. drake
--- NOTE | 2024-08-17 13:37 | ESDS_ITS ---
<Statement entered by Tonja Ortiz MD - 08/18/24 07:32> Patient was seen and examined by me personally. I agree with the discharge plan as discussed with the information technology internship physician, and my attending, Dr. Taylor. Tonja Ortiz MD, PGY-3 Planned Discharge Date 08/17/24 DS: Providers Provider Date of admission: 08/13/24 17:48 Primary care physician: Yazmin Brian PA-C Admitting Provider: Jennie Levy DO Attending Provider on Admission: Rip Taylor MD Consults: 08/13/24 11:23 Consult to Neurology / Tele-Neurology Stat Comment: R/o Stroke Consulting Provider: Eugene Varela 08/13/24 16:03 Referral Physical Therapy Routine Comment: Physician Instructions: 08/13/24 22:27 [facility] Referral - Knowledge Deficit Routine Comment: Positive screening for knowledge deficit needs. [facility] Referral - Transportation Routine Comment: Positive screening for transportation needs. 08/14/24 08:18 Referral Speech Therapy Stat Comment: Attending Provider on DC: Blaine Geiger MD Discharging Provider: Blaine Geiger MD DS: Diagnosis Problem List Completed Was Problem List Reviewed/Reconciled?: Yes Hospital Course Hospital Course Hospital course: A 74-year-old male with past medical history of hypertension on lisinopril, GERD, and BPH, bradycardia s/p pacemaker in 2020 presented to the hospital with chief complaints of dizziness and admitted in the hospital for stroke rule out. Vitals are stable at the time of admission except for elevated blood pressure 176/98 mmHg. CBC and CMP were unremarkable. CT head done at that time did not show acute infarct/hemorrhage. CT head/neck is negative for stenosis. Echo done on 08/13/2024 - Normal LV size. Mild LVH. Normal left ventricular diastolic filling pattern for age. Estimated EF [address] %. [address] Varela was consulted and appreciated her recommendations. MRI with MR angiogram was done and showed no acute infarct, but found to have frontoparietal lobe lesion was noted and Dr. Varela recommended no further workup for the frontoparietal lesion. Patient was treated with antiplatelets, statins, antihypertensives and meclizine. Patient was discharged to home with the following medications and recommendations -Follow up with your PCP within 1 week of discharge -Follow up with Dr. Varela within 1 week of discharge -Started clopidogrel 75mg P.O qday, Atorvastatin 40mg P.O HS, and meclizine 25mg as needed. -Atorvastatin 20mg is stopped and continue your medications as prescribed by your Pcp. -Take medications as prescribed. -Continue rest of the medications as prescribed by your PCP -Return to ED if symptoms persist or return #Acute ischemic stroke - ruled out # History of hypertension # History of bradycardia s/p pacemaker Patient plan of care was discussed with the attending physician, Dr. Taylor and senior resident Dr. Angel Geiger, PGY1 Time Spent with Patient Time attestation: Total time spent providing and/or coordinating discharge services: Time spent: Greater than 30 minutes Exam Vital Signs Temp Pulse Resp BP Pulse Ox O2 Del Method O2 Flow Rate 97.8 F 69 12 107/63 96 Room Air 1 08/17/24 08:00 08/17/24 08:47 08/17/24 08:00 08/17/24 08:47 08/17/24 08:00 08/17/24 08:00 08/17/24 04:00 Narrative Exam General: Awake and in no acute distress. HEENT: Normocephalic, atraumatic, mucous membranes moist. Heart: Regular rate and rhythm, no murmurs. Lungs: Clear to auscultation with no wheezing or crackles. Abdomen: Soft, nondistended, nontender, positive bowel sounds. ?No guarding or rebound tenderness. Neurologic: Alert and oriented x3, no gross neurological deficit, and patient able to move all 4 extremities. Extremities: No edema. Skin: No rash or ecchymoses. Discharge Plan Plan Patient Disposition: HOME (Self Care) Patient condition on transfer: Stable Care Plan Goals: -Follow up with your PCP within 1 week of discharge -Follow up with Dr. Varela within 1 week of discharge -Started clopidogrel 75mg P.O qday, Atorvastatin 40mg P.O HS, and meclizine 25mg as needed. -Atorvastatin 20mg is stopped and continue your medications as prescribed by your Pcp. -Take medications as prescribed. -Return to ED if symptoms persist or return Prescriptions/Referrals Prescriptions/Med Rec: New atorvastatin 40 mg tablet 40 mg PO QPM 30 Days Qty: 30 0RF meclizine 25 mg tablet 25 mg PO QDAY PRN (Reason: dizziness) 30 Days Qty: 30 0RF clopidogrel 75 mg tablet 75 mg PO QDAY 30 Days Qty: 30 0RF Continued tamsulosin 0.4 mg capsule 0.4 mg PO QHS acetaminophen-codeine 300-30 mg tablet 2 tab PO TID MDD 6 PRN (Reason: pain) Qty: 20 0RF lisinopril 20 mg tablet 20 mg PO QDAY Patient Comments: TAKE 1 TABLET BY MOUTH DAILY FOR BLOOD PRESSURE aspirin 81 mg Tablet,Delayed Release (Dr/Ec) 81 mg PO QDAY Discontinued atorvastatin 20 mg Tablet 20 mg PO HS Referrals: Yazmin Brian PA-C [Primary Care Provider] - Patient/Caregiver Discharge Instructions Discharge Activity: resume usual activities Other Discharge Activity Instructions:: follow up with dr. varela in 2 weeks, call [phone] for appointment. Education Materials: Anatomy of the Brain, Stroke Prevention Activity Print Language: Faroese Stand Alone Forms: [employer] Award Info., Patient Portal Info Letter Discharge Order Discharge Orders: Discharge (Routine); Ordered 08/17/24 Ordered By: Jesus Manuel Mckeon Quality Discharge Quality Measures VTE prophylaxis MD Attestestation MD Attestation I reviewed labs, imaging, EKG, home medications and prior available records. Face to face evaluation was performed by me. I have personally examined the patient and discussed assessment and plan with the IM team. I reviewed the resident note and agree with the plan with exceptions as below. CVA symptoms: MRI was done and showed no acute CVA but white matter changes that may represent old infarct. Discussed with neurology: No need for repeat MRI. May discharge. Continue aspirin and atorvastatin. BPH: Continue tamsulosin. Hypertension: Resume lisinopril. Time spent is 40 minutes. More than 50% of the time was spent on patient education and coordination of care.
== END 2024-08-17 14:22 | disposition home or self-care (01) | DRG 149 ==
LOC: SERX 12:21 → SERHOLD 18:21 → S2NX 20:29
PROVIDERS: Student in an Organized Health Care Education/Training Program; Admitting Provider Internal Medicine; Emergency Provider Emergency Medicine; PCP Physician Assistant; Referring Provider Emergency Medicine; Visit Provider Student in an Organized Health Care Education/Training Program
DX: H81.10 Benign paroxysmal vertigo, unspecified ear (principal); K21.9 Gastro-esophageal reflux disease without esophagitis; N40.0 Benign prostatic hyperplasia without lower urinary tract symptoms; I10 Essential (primary) hypertension; E11.9 Type 2 diabetes mellitus without complications; I49.5 Sick sinus syndrome; Z95.0 Presence of cardiac pacemaker; Z66 Do not resuscitate; Z79.899 Other long term (current) drug therapy; Z79.82 Long term (current) use of aspirin
CPT/HCPCS: 36415; 70450; 70544; 71045; 80048; 80053; 80061; 80307; 81001; 83036; 84443; 84484; 85025; 85610; 85730; 92526; 93005; 93306; 97162; 99285; J1650; A9270

== ENCOUNTER → 2024-09-21 | Outpatient (BNVA) | payer MEDICARE, MEDICAID, SELFPAY | END | disposition home or self-care (01) | PROVIDERS: PCP Physician Assistant; Referring Provider Physician Assistant; Visit Provider Urology | DX: N40.1 Benign prostatic hyperplasia with lower urinary tract symptoms (principal); R39.12 Poor urinary stream; I10 Essential (primary) hypertension; E78.00 Pure hypercholesterolemia, unspecified; I25.10 Atherosclerotic heart disease of native coronary artery without angina pectoris; K21.9 Gastro-esophageal reflux disease without esophagitis; E11.9 Type 2 diabetes mellitus without complications | CPT/HCPCS: 51741; 51798 ==

== ENCOUNTER → 2024-12-01 | Outpatient (CLI) | payer MEDICARE, MEDICAID, SELFPAY ==
[2024-11-27 10:53] LABS: Albumin, Serum 4.1 gm/dL (3.4-4.8); Anion Gap 7 (7-16); BUN/Creatinine Ratio 16 Ratio (12-20); Blood Urea Nitrogen 11 mg/dL (9-23); Calcium 9.2 mg/dL (8.3-10.6); Calcium (Corrected) 9.2 mg/dL (8.5-10.1); Carbon Dioxide 29.7 mMol/L (20.0-31.0); Chloride 103 mMol/L (98-107); Creatinine (Component) 0.7 mg/dL (0.6-1.3); Glucose 106 mg/dL (74-106); Osmolality,Calculated 278 (275-295); Potassium 4.4 mMol/L (3.4-5.1); Sodium 140 mMol/L (136-145); eGFR > 60 See Note
--- NOTE | 2024-12-01 10:00 | XR_ITS ---
Examination: MRI of brain without intravenous contrast. MRI brain with intravenous contrast. Date and time of exam:December 01, 2024 1122 hours INDICATIONS: Seizures beginning 8 months ago, posterior headaches beginning 6 months ago dizziness 2 years Technique: Multiple axial and sagittal images of the brain to been obtained. Siemens high-resolution 1.52 Quynh short bore scanner utilized. Sagittal sections, T1 weighted images, TR 500, TE 14, are performed. Axial sections proton-density and T2-weighted images have been obtained. Inversion recovery axial images, TR 9260, TE 111, TR 2500. Diffusion weighted images, axial sections, TR 4800, TE 128, B value 1000. Axial sections, ADC map, TR 4800, TE 128. Axial and coronal images were also obtained post 15 cc gadolinium administered intravenously. Findings:: Enlargement of the sella turcica is not present. The optic chiasm and infundibular stalk are not remarkable. There is no localized enlargement of the medulla or sky. Fourth ventricle and cerebellar tonsils appear normal in position. No subacute area of hemorrhage density is seen. Fourth ventricle is midline. Mass in the cerebellopontine angle region is not evident. 7th and 8th nerve complexes exhibit symmetry Globes are symmetrical Orbital musculature including medial lateral rectus muscles do not exhibit abnormality Increased white matter signal is prominent, old infarct right parietal lobe Effacement of the cortical sulcal markings is not identified. Mass effect upon the ventricular system is not identified. 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
== END | disposition home or self-care (01) ==
LOC: SMRI 09:28
PROVIDERS: PCP Physician Assistant; Referring Provider Psychiatry & Neurology Neurology; Visit Provider Psychiatry & Neurology Neurology
DX: G40.909 Epilepsy, unspecified, not intractable, without status epilepticus (principal); Z86.73 Personal history of transient ischemic attack (TIA), and cerebral infarction without residual deficits; I10 Essential (primary) hypertension
CPT/HCPCS: 36415; 70553; 80069; A9579

== ENCOUNTER → 2025-01-05 | Outpatient (BNVA) | payer MEDICARE, MEDICAID, SELFPAY | END | disposition home or self-care (01) | PROVIDERS: PCP Physician Assistant; Referring Provider Physician Assistant; Visit Provider Urology | DX: N40.1 Benign prostatic hyperplasia with lower urinary tract symptoms (principal); N13.8 Other obstructive and reflux uropathy; I10 Essential (primary) hypertension; I25.10 Atherosclerotic heart disease of native coronary artery without angina pectoris; E11.9 Type 2 diabetes mellitus without complications; Z95.0 Presence of cardiac pacemaker; E66.9 Obesity, unspecified; Z68.30 Body mass index [BMI] 30.0-30.9, adult; E78.00 Pure hypercholesterolemia, unspecified; K21.9 Gastro-esophageal reflux disease without esophagitis | CPT/HCPCS: 81003; 99212; G0463 ==

== ENCOUNTER → 2025-08-07 | Outpatient (BNVA) | payer MEDICARE, MEDICAID, SELFPAY | END | disposition home or self-care (01) | PROVIDERS: PCP Physician Assistant; Referring Provider Physician Assistant; Visit Provider Physician Assistant | DX: N40.1 Benign prostatic hyperplasia with lower urinary tract symptoms (principal); I10 Essential (primary) hypertension; I25.10 Atherosclerotic heart disease of native coronary artery without angina pectoris; Z95.0 Presence of cardiac pacemaker; E66.9 Obesity, unspecified | CPT/HCPCS: Q3014 ==